=== PATIENT | male | born 1930 | race American Indian/Alaskan Native ===

== ENCOUNTER 2016-08-27 01:58 | Emergency (ER) | payer MEDICARE ==
[2016-08-27 03:30] LABS: Basophils % (Auto) 0.4 % (0.0-1.8); Eosinophils % (Auto) 0.4 % (0.0-4.3); Hematocrit 34.1 % (35.5-45.6); Hemoglobin 11.4 gm/dl (11.8-15.2); Mean Corpuscular HGB Conc 34 % (32-34); Mean Corpuscular Hemoglobin 30 pg (28-32); Mean Corpuscular Volume 91 fl (84-94); Platelet Count 286 K/mm3 (140-440); Red Blood Count 3.76 M/mm3 (3.65-5.03); Red Cell Distribution Width 13.3 % (13.2-15.2); White Blood Count 10.2 K/mm3 (4.5-11.0)
[2016-08-27 03:32] LABS: Alanine Aminotransferase 25 units/L (7-56); Albumin 3.6 g/dL (3.9-5); Alkaline Phosphatase 66 units/L (35-129); Anion Gap 19 mmol/L; Blood Urea Nitrogen 12 mg/dL (9-20); Calcium 8.9 mg/dL (8.4-10.2); Carbon Dioxide 27 mmol/L (22-30); Glucose 141 mg/dL (75-100); Lipase 14 units/L (13-60); Potassium 4.3 mmol/L (3.6-5.0); Sodium 144 mmol/L (137-145); Total Protein 7.2 g/dL (6.3-8.2)
[2016-08-27] MEDS ORDERED: ZOFRAN IV ONE (03:51)
[2016-08-27] MEDS ORDERED: NACL 0.9% 1000 ML 1,000 ML IV ONE (03:51)
--- NOTE | 2016-08-27 04:23 | Emergency Department Report ---
ED Abdominal Pain HPI - General Chief Complaint: Abdominal Pain Stated Complaint: ABD PAIN Time Seen by Provider: 08/27/16 03:35 Source: family, EMS Mode of arrival: Stretcher Limitations: No Limitations - History of Present Illness Initial Comments: This is an 85-year-old gentleman coming from home. They daughter is historian. According to her her father has had increased burping today. He seemed to be doing fine otherwise and at his baseline. After dinner this evening he seemed to be uncomfortable. He did have emesis times one just before ambulance coming. Patient specifically asked to be brought to the hospital due to his abdominal pain. After having emesis 1 and he seems more comfortable according to the daughter. She indicates she is otherwise been doing his baseline activities. He is currently on hospice. He has limited activities. He is bedridden. He wears diaper for bowel and bladder incontinence. He has not had fevers. He is able to tolerate by mouth intake but does require assistance with this. His baseline does include some speech but has some difficulty with this process and difficulty with understanding. She indicates that he is coherent and lucid enough in general to be able to explain when he has discomfort however. ED caveat is taken due to dementia. - Related Data Home Medications Medication Instructions Recorded Confirmed Last Taken Aspirin [Aspirin BABY CHEW TAB] 81 mg PO QDAY 01/28/15 08/22/15 07/09/15 Cetirizine HCl [ZyrTEC] 10 mg PO DAILY 01/28/15 08/22/15 Unknown Metoprolol [Lopressor TAB] 25 mg PO DAILY 01/28/15 08/22/15 Unknown [place]-3 Fatty Acids [Fish Oil] 1,000 mg PO DAILY 01/28/15 08/22/15 07/11/15 Polyethylene Glycol 3350 [Miralax 17 gm PO QDAY 01/28/15 08/22/15 Unknown 3350] Vitamin E Acetate [Vitamin E] 2,000 unit PO DAILY 01/28/15 08/22/15 07/11/15 Ascorbic Acid [Vitamin C] 1,000 mg PO DAILY 07/12/15 08/22/15 Unknown Rober Seed/Ala/Linoleic/Oleic [Sv 1,000 mg PO DAILY 07/12/15 08/22/15 07/11/15 Rober Seed Oil 1,000 mg Sfgl] Cyanocobalamin (Vitamin B-12) 5,000 mcg PO DAILY 07/12/15 08/22/15 Unknown [Vitamin B12] Garlic [Odor Free Garlic] 100 mg PO DAILY 07/12/15 08/22/15 07/11/15 Ginkgo Biloba 40 mg PO DAILY 07/12/15 08/22/15 07/11/15 Lactobacillus Combination No.8 1 each PO DAILY 07/12/15 08/22/15 Unknown [Adult Probiotic] Memantine HCl [Namenda Xr] 21 mg PO DAILY 07/12/15 08/22/15 Unknown Multivit-Min/FA/Lycopen/Lutein 1 each PO DAILY 07/12/15 08/22/15 Unknown [Centrum Silver Tablet] Turmeric Root Extract [Turmeric] 500 mg PO DAILY 07/12/15 08/22/15 07/11/15 Previous Rx's Medication Instructions Recorded Last Taken Type HYDROcodone/APAP 5-325 [[place]uma 1 each PO Q6HR PRN #20 tablet 07/19/15 Unknown Rx 5-325 mg TAB] Apixaban [Eliquis] 5 mg PO BID #30 tablet 08/24/15 Unknown Rx Apixaban [Eliquis] 10 mg PO BID #12 tablet 08/24/15 Unknown Rx Ciprofloxacin [Ciprofloxacin ORAL 500 mg PO Q12H #20 ml 08/24/15 Unknown Rx LIQ] Allergies Allergy/AdvReac Type Severity Reaction Status Date / Time No Known Allergies Allergy Verified 07/11/15 10:51 ED Review of Systems ROS: Stated complaint: ABD PAIN Other details as noted in HPI Comment: per daughter Constitutional: denies: chills, fever Respiratory: cough (since yesterday) Gastrointestinal: abdominal pain, vomiting ED Past Medical Hx - Past Medical History Hx Hypertension: Yes Hx CVA: Yes Hx Heart Attack/AMI: No Hx Congestive Heart Failure: No Hx Diabetes: No Hx Deep Vein Thrombosis: No Hx Pulmonary Embolism: No Hx Liver Disease: No Hx Renal Disease: No Hx Sickle Cell Disease: No Hx Arthritis: No Hx Seizures: No Hx Kidney Stones: No Hx Asthma: No Hx COPD: No Hx Tuberculosis: No Hx Dementia: Yes Hx HIV: No - Surgical History Hx Coronary Stent: No Hx Pacemaker: No Hx Internal Defibrillator: No - Social History Smoking Status: Former Smoker Substance Use Type: None - Medications Home Medications: Home Medications Medication Instructions Recorded Confirmed Last Taken Type Aspirin [Aspirin BABY CHEW TAB] 81 mg PO QDAY 01/28/15 08/22/15 07/09/15 History Cetirizine HCl [ZyrTEC] 10 mg PO DAILY 01/28/15 08/22/15 Unknown History Metoprolol [Lopressor TAB] 25 mg PO DAILY 01/28/15 08/22/15 Unknown History [place]-3 Fatty Acids [Fish Oil] 1,000 mg PO DAILY 01/28/15 08/22/15 07/11/15 History Polyethylene Glycol 3350 [Miralax 17 gm PO QDAY 01/28/15 08/22/15 Unknown History 3350] Vitamin E Acetate [Vitamin E] 2,000 unit PO DAILY 01/28/15 08/22/15 07/11/15 History Ascorbic Acid [Vitamin C] 1,000 mg PO DAILY 07/12/15 08/22/15 Unknown History Rober Seed/Ala/Linoleic/Oleic [Sv 1,000 mg PO DAILY 07/12/15 08/22/15 07/11/15 History Rober Seed Oil 1,000 mg Sfgl] Cyanocobalamin (Vitamin B-12) 5,000 mcg PO DAILY 07/12/15 08/22/15 Unknown History [Vitamin B12] Garlic [Odor Free Garlic] 100 mg PO DAILY 07/12/15 08/22/15 07/11/15 History Ginkgo Biloba 40 mg PO DAILY 07/12/15 08/22/15 07/11/15 History Lactobacillus Combination No.8 1 each PO DAILY 07/12/15 08/22/15 Unknown History [Adult Probiotic] Memantine HCl [Namenda Xr] 21 mg PO DAILY 07/12/15 08/22/15 Unknown History Multivit-Min/FA/Lycopen/Lutein 1 each PO DAILY 07/12/15 08/22/15 Unknown History [Centrum Silver Tablet] Turmeric Root Extract [Turmeric] 500 mg PO DAILY 07/12/15 08/22/15 07/11/15 History HYDROcodone/APAP 5-325 [[place]uma 1 each PO Q6HR PRN #20 tablet 07/19/15 08/22/15 Unknown Rx 5-325 mg TAB] Apixaban [Eliquis] 5 mg PO BID #30 tablet 08/24/15 Unknown Rx Apixaban [Eliquis] 10 mg PO BID #12 tablet 08/24/15 Unknown Rx Ciprofloxacin [Ciprofloxacin ORAL 500 mg PO Q12H #20 ml 08/24/15 Unknown Rx LIQ] ED Physical Exam - General Limitations: No Limitations General appearance: other (sleeping. Is arousable. Frail appearing) - Head Head exam: Present: atraumatic, normocephalic - Eye Eye exam: Present: normal appearance, EOMI. Absent: scleral icterus - ENT ENT exam: Present: mucous membranes dry, other (no oral lesions) - Neck Neck exam: Present: full ROM. Absent: meningismus, lymphadenopathy - Respiratory Respiratory exam: Present: normal lung sounds bilaterally. Absent: wheezes, rales - Cardiovascular Cardiovascular Exam: Present: regular rate, normal rhythm. Absent: bradycardia , systolic murmur, diastolic murmur - GI/Abdominal GI/Abdominal exam: Present: soft, tenderness (mild in the right lower quadrant. Over the area where he had his hernia repair.), normal bowel sounds. Absent: distended, guarding - exam: Present: normal inspection, other (Stage 1 skin breakdown in the perineum.) - Extremities Exam Extremities exam: Present: normal inspection. Absent: tenderness - Back Exam Back exam: Absent: tenderness, CVA tenderness (R), CVA tenderness (L) - Neurological Exam Neurological exam: Present: other (moves arms spontaneously. Is able to minimally move the legs.) - Psychiatric Psychiatric exam: Present: other (calm when awake) - Skin Skin exam: Present: warm, dry, intact, normal color ED Course Vital Signs 08/27/16 05:12 Pulse Rate 93 H Respiratory 25 H Rate Blood Pressure 119/85 [Left] O2 Sat by Pulse 96 Oximetry - Reevaluation(s) Reevaluation #1: 08/27/16 06:06 Labs are nor noted. Normal white count is noted. A Y studies are noted as well. Urinalysis demonstrates no infection but does have amount moderate amount of hematuria. I question whether this is due to quick cath procedure. I do not suspect infectious component with the urine however. X-ray does reveal modest to market amount of colonic stool. There is some stomach distention noted as well. Patient was given a fleets enema here with excellent result. His abdomen seems much softer after enema as well. Despite this is the etiology of his discomforts. I will discharge back to home. He does have an excellent caregiver and his daughter. She is very agreeable with the plan and agrees repeat enema at home if necessary. I do not suspect surgical etiology at this time. The abdominal x-ray does not demonstrate an obstructive pattern as much as just constipated versus obstipated pattern. ED Medical Decision Making - Lab Data Result diagrams: 08/27/16 02:57 08/27/16 02:57 - Radiology Data interpreted by me: Moderate amount of stool in the rectal vault. Colonic dilation is noted. Consistent with old leads. There is moderate amount of food contents noted in the stomach with some distention as well. No transition point. Critical care attestation.: If time is entered above; I have spent that time in minutes in the direct care of this critically ill patient, excluding procedure time. ED Disposition Clinical Impression: Constipation by delayed colonic transit Disposition: DISCHARGED TO HOME OR SELFCARE Is pt being admited?: No Does the pt Need Aspirin: No Condition: Stable Instructions: Constipation (ED) Additional Instructions: Consider another enema at home if Wilfrido continues to demonstrate some evidence of abdominal discomfort at home. Drink plenty of fluids. Consider a stool softener or diet modification if he continues to be constipated. Referrals: PRIMARY CARE, [Primary Care Provider] - 3-5 Days Time of Disposition: 06:04
[2016-08-27] MEDS ORDERED: FLEET PR ONE (04:44)
[2016-08-27 04:45] LABS: Bilirubin,Urine NEG (Negative); Blood,Urine LG (Negative); Ketones,Urine TR mg/dL (Negative); Leukocyte Esterase,Urine NEG (Negative); Mucus,Urine 3+ /HPF; Nitrite,Urine NEG (Negative)
[2016-08-27 05:13] VITALS: BP 119/85
--- NOTE | 2016-08-27 07:19 | XRay Report ---
ABDOMINAL SERIES: History: Abdominal pain. The stomach is markedly distended and filled with debris. Correlate for gastric outlet obstruction. The small bowel loops and colon appear normal caliber. There is moderate fecal retention. Radiotherapy beads are noted in the prostate bed. AP view of the chest demonstrates borderline heart size and mild chronic interstitial changes in both lungs. No infiltrate, pleural effusion or pneumothorax. The esophagus also appears gas filled and dilated. IMPRESSION: Marked distention of the stomach concerning for gastric outlet obstruction. Please correlate with the patient and consider further evaluation with CT.
== END 2016-08-27 09:43 | disposition home or self-care (01) ==
LOC: ED 01:58
DX: K59.00 Constipation, unspecified (principal); Z79.82 Long term (current) use of aspirin; Z86.73 Personal history of transient ischemic attack (TIA), and cerebral infarction without residual deficits; Z87.891 Personal history of nicotine dependence; I10 Essential (primary) hypertension
CPT/HCPCS: 36415; 74022; 80053; 81001; 83690; 85025; 96361; 96374; 99284; J2405; J7030

== ENCOUNTER 2016-11-25 01:07 | Inpatient (IN) | payer MEDICARE ==
[2016-11-25 01:48] LABS: Hematocrit 31.4 % (35.5-45.6); Hemoglobin 10.3 gm/dl (11.8-15.2); Mean Corpuscular HGB Conc 33 % (32-34); Mean Corpuscular Hemoglobin 29 pg (28-32); Mean Corpuscular Volume 89 fl (84-94); Platelet Count 335 K/mm3 (140-440); Red Blood Count 3.52 M/mm3 (3.65-5.03); Red Cell Distribution Width 14.8 % (13.2-15.2); White Blood Count 16.4 K/mm3 (4.5-11.0)
[2016-11-25 02:11] LABS: Alanine Aminotransferase 7 units/L (7-56); Albumin 2.8 g/dL (3.9-5); Albumin/Globulin Ratio 0.7 %; Alkaline Phosphatase 57 units/L (35-129); Anion Gap 21 mmol/L; BUN/Creatinine Ratio 25.71; Blood Urea Nitrogen 18 mg/dL (9-20); Calcium 8.9 mg/dL (8.4-10.2); Carbon Dioxide 23 mmol/L (22-30); Chloride 101.2 mmol/L (98-107); Glucose 137 mg/dL (75-100); Potassium 4.2 mmol/L (3.6-5.0); Sodium 141 mmol/L (137-145); Total Protein 7.1 g/dL (6.3-8.2)
--- NOTE | 2016-11-25 03:17 | Emergency Department Report ---
HPI - General Chief Complaint: Dyspnea/Respdistress Time Seen by Provider: 11/25/16 01:10 - HPI HPI: This is a 86-year-old Af[place] male presents the emergency department by EMS from home with shortness of breath and some signs of respiratory distress. The patient has a history of dementia and CVA. He has home health care hospice. The patient himself is a poor historian currently. Family eventually came bedside and says he normally is able to converse well but today he has not been talking much. came home and found the patient appeared to be breathing fast and appears short of breath so EMS was called. He was found to have a pulse ox of about 80% on room air and had audible crackles. He improved when he was placed on CPAP in route. ED Past Medical Hx - Past Medical History Previous Medical History?: Yes Hx Hypertension: Yes Hx CVA: Yes Hx Heart Attack/AMI: No Hx Congestive Heart Failure: No Hx Diabetes: No Hx Deep Vein Thrombosis: No Hx Pulmonary Embolism: No Hx Liver Disease: No Hx Renal Disease: No Hx Sickle Cell Disease: No Hx Arthritis: No Hx Seizures: No Hx Kidney Stones: No Hx Asthma: No Hx COPD: No Hx Tuberculosis: No Hx Dementia: Yes Hx HIV: No Additional medical history: home hospice - Surgical History Past Surgical History?: Yes Hx Coronary Stent: No Hx Pacemaker: No Hx Internal Defibrillator: No - Social History Smoking Status: Former Smoker Substance Use Type: Alcohol - Medications Home Medications: Home Medications Medication Instructions Recorded Confirmed Last Taken Type Garlic [Odor Free Garlic] 100 mg PO DAILY 07/12/15 11/25/16 07/11/15 History Aspirin EC [Aspirin Enteric Coated 81 mg PO QDAY 11/25/16 11/25/16 Unknown History TAB] Clarinda Oil (Nf) 60 ml PO QDAY 11/25/16 11/25/16 Unknown History Docusate Sodium [Colace ORAL LIQ] 100 mg PO DAILY 11/25/16 11/25/16 Unknown History Ranitidine HCl [Zantac 15mg/ml 150 mg PO BID 11/25/16 11/25/16 Unknown History Oral Liq] ED Review of Systems ROS: Stated complaint: ANJEL Other details as noted in HPI Comment: Unobtainable due to pts medical conditions Physical Exam - Physical Exam Vital Signs: Vital Signs 11/25/16 11/25/16 11/25/16 01:09 01:16 01:18 Temperature 97.8 F Pulse Rate 107 H Respiratory 37 H 37 H 36 H Rate Blood Pressure 127/77 O2 Sat by Pulse 94 95 Oximetry 11/25/16 11/25/16 11/25/16 01:29 01:31 01:45 Temperature Pulse Rate 83 103 H 101 H Respiratory 27 H 30 H 33 H Rate Blood Pressure 127/77 110/82 O2 Sat by Pulse 96 99 99 Oximetry 11/25/16 11/25/16 11/25/16 02:00 02:15 02:30 Temperature Pulse Rate 101 H 99 H 100 H Respiratory 29 H 29 H 29 H Rate Blood Pressure 114/83 111/81 112/77 O2 Sat by Pulse 100 99 99 Oximetry 11/25/16 02:32 Temperature Pulse Rate 102 H Respiratory Rate Blood Pressure O2 Sat by Pulse Oximetry Physical Exam: GENERAL: Patient is elderly and ill-appearing. HEENT: Normocephalic. Atraumatic. Extraocular motions are intact. Patient has moist mucous membranes. Pupils equal reactive to light bilaterally. NECK: Supple. Trachea is midline. CHEST/LUNGS: Severely coarse breath sounds heard throughout the chest and even heard without auscultation coming out of his mouth. There is tachypnea and supraclavicular accessory muscle use. There is respiratory distress noted. HEART/CARDIOVASCULAR: Regular. There is mild tachycardia. There is no gallop rub or murmur. ABDOMEN: Abdomen is soft, nontender. Patient has normal bowel sounds. There is no abdominal distention. SKIN: Skin is warm and dry. NEURO: The patient is awake. Patient currently nonverbal. The patient is cooperative. The patient has no focal neurologic deficits. MUSCULOSKELETAL: There is no tenderness or deformity. Radial pulses +2 over 4 bilaterally. Cap refill less than 2 seconds. There is no evidence of acute injury. ED Course Vital Signs 11/25/16 11/25/16 11/25/16 01:09 01:16 01:18 Temperature 97.8 F Pulse Rate 107 H Respiratory 37 H 37 H 36 H Rate Blood Pressure 127/77 O2 Sat by Pulse 94 95 Oximetry 11/25/16 11/25/16 11/25/16 01:29 01:31 01:45 Temperature Pulse Rate 83 103 H 101 H Respiratory 27 H 30 H 33 H Rate Blood Pressure 127/77 110/82 O2 Sat by Pulse 96 99 99 Oximetry 11/25/16 11/25/16 11/25/16 02:00 02:15 02:30 Temperature Pulse Rate 101 H 99 H 100 H Respiratory 29 H 29 H 29 H Rate Blood Pressure 114/83 111/81 112/77 O2 Sat by Pulse 100 99 99 Oximetry 11/25/16 02:32 Temperature Pulse Rate 102 H Respiratory Rate Blood Pressure O2 Sat by Pulse Oximetry - ABG Interpretation Ph: 7.54 PCO2: 30 PO2: 60 Bicarbonate: 26 ED Medical Decision Making - Lab Data Result diagrams: 11/25/16 01:12 11/25/16 01:12 - EKG Data -: EKG Interpreted by Me EKG shows normal: sinus rhythm (with fusion complexes), axis, intervals, QRS complexes, ST-T waves Rate: tachycardia (101 bpm) - EKG Data When compared to previous EKG there are: previous EKG unavailable Interpretation: other (sinus rhythm with fusion complexes, normal axis, mild tachycardia at 101 bpm) - Radiology Data Radiology results: report reviewed, image reviewed interpreted by me: Chest x-ray shows hyperinflation of the lungs, flattening of the diaphragms and some signs of interstitial lung disease and/or fibrosis. CT angiography of the chest shows no evidence of pulmonary arterial emboli. COPD with fibrosis. Bilateral lower lung atelectasis with mild effusions. Significant ascites in the upper abdomen. - Medical Decision Making 86-year-old male presents with some respiratory distress with audible coarse breath sounds both through the lung raymundo with auscultation as well as coming out of his mouth. There is tachypnea and accessory muscle use. Patient was switched to a BiPAP machine. ABG shows some hypoxia and shows some respiratory alkalosis. Labs show elevated troponins but it has started to trend down. D- dimer is extremely elevated and therefore a CT angiography of the chest was done that does not show any pneumonia and appears consistent with COPD with fibrosis as well as some upper abdominal ascites. The patient is a DO NOT RESUSCITATE as the daughter does not want any type of mechanical ventilation or life support but is in agreement for any type of treatment that we will keep him from losing his pulse or requiring mechanical assistance. Once the patient was placed on the BiPAP he improved. It is helped with the coarse breath sounds and while on the BiPAP he does not have any hypoxia. However he does appear to have desaturation when he is taken off of it. Due to the elevated troponin level without renal insufficiency, the patient was given aspirin per rectum. I will hold off on any heparin at this time secondary to the patient's advanced age, dementia and concern for falls. However he will be admitted to the hospital for further evaluation and possible cardio consultation has been accepted for admission by the hospitalist, Dr. Cisse. Critical Care Time: Yes Critical care time in (mins) excluding proc time.: 31 Critical care attestation.: If time is entered above; I have spent that time in minutes in the direct care of this critically ill patient, excluding procedure time. Critical care time was spent on this patient and doing his initial evaluation, multiple re- evaluations, ordering and interpretation of labs, ordering and interpretation of imaging, discussion with the daughter at bedside multiple times, discussion with the hospitalist, disposition planning. Critical Care Time: 31 mins ED Disposition Clinical Impression: Elevated troponin, Respiratory distress, Hypoxemia Dementia Qualifiers: Dementia type: unspecified type Dementia behavioral disturbance: without behavioral disturbance Qualified Code(s): F03.90 - Unspecified dementia without behavioral disturbance Disposition: OP ADMIT IP TO THIS HOSP Is pt being admited?: Yes Condition: Fair Referrals: PRIMARY CARE, [Primary Care Provider] - 3-5 Days Time of Disposition: 06:17
[2016-11-25 03:35] LABS: Basophils % (Manual) 0 % (0.0-1.8); Blastocytes % (Manual) 0 %; Diff Status Complete; Eosinophils % (Manual) 0 % (0.0-4.3); Platelet Estimate Consistent w Auto; RBC Morphology Normal
[2016-11-25] MEDS ORDERED: NACL ONE (04:04)
--- NOTE | 2016-11-25 05:50 | Cat Scan Report ---
FINAL REPORT PROCEDURE: CT ANGIO CHEST TECHNIQUE: Computerized tomographic angiography of the chest was performed after the IV injection of iodinated nonionic contrast including image processing. The image data was postprocessed using 2-dimensional multiplanar reformatted (MPR) and 3-dimensional (MIP and/or volume rendered) techniques. HISTORY: SOB, hypoxia, elevated dimer COMPARISON: 08/23/2015 FINDINGS: Heart and pericardium: Normal. Thoracic aorta: Moderate atherosclerosis of the aorta. No aneurysm or dissection.. Pulmonary vasculature: No pulmonary arterial emboli. Lymph nodes: No enlarged thoracic lymph nodes. Lungs: Bilateral lower lung atelectasis with mild effusions. Mild COPD with fibrosis. No pneumothorax. The central airway is patent.. Pleural space: No effusion, thickening, or pneumothorax. Musculoskeletal structures: Moderate degenerative changes of the thoracic spine. No acute osseous abnormality. Upper abdominal structures: There significant ascites in the upper abdomen.. IMPRESSION: There is no evidence of pulmonary arterial emboli. COPD with fibrosis. Bilateral lower lung atelectasis with mild effusions. Significant ascites in the upper abdomen.
[2016-11-25] MEDS ORDERED: ASPIRIN PR ONE (05:52)
[2016-11-25] MEDS ORDERED: ASPIRIN PO ONE (07:34)
[2016-11-25] MEDS ORDERED: DULCOLAX PR PRN (07:36)
--- NOTE | 2016-11-25 07:39 | Admit Criteria Form ---
Admission Criteria Documentation: GENERAL ADMISSION CRITERIA (Place 'X' for any and all applicable criteria): Admission is indicated for ANY ONE of the following: [ ]I. Hemodynamic instability as indicated by ANY ONE of the following(1)(2) (3)(4)(5): [ ]a) Vital sign abnormality not readily corrected by appropriate treatment within 12 to 24 hours indicated by ANY ONE of the following: [ ]i) Hypotension [ ]ii) Symptomatic Tachycardia unresponsive to treatment (eg , analgesia, fluids, sedation as indicated) [ ]iii) Orthostatic vital sign changes unresponsive to treatment (eg, fluids) [ ]b) Vital sign abnormality that is severe indicated by ANY ONE of the following: [ ]i) Inadequate perfusion indicated by ANY ONE of the following: [ ]1) Lactic acidosis (greater than 2 mmol/L) [ ]2) New abnormal capillary refill (greater than 3 seconds) [ ]3) Other metabolic acidosis (arterial pH less than 7.35) not otherwise explained [ ]4) Reduced urine output [ ]5) Altered mental status [ ]6) Myocardial Ischemia [ ]v) Mean arterial pressure[A] less than 60 mm Hg [ ]vi) Mean arterial pressure[A] less than 70 mm Hg after 30 minutes of appropriate treatment (eg, fluid resuscitation) [ ]vii) IV inotropic or vasopressor medication required to maintain adequate blood pressure or perfusion [ ]viii) Sustained heart rate greater than 120 beats per minute in adult or child 6 years or older[B]] [ ]II. Hypertension requiring inpatient treatment as indicated by ANY ONE of the following(6)(7)(8): [ ]a) SBP greater than 220 mm Hg or DBP greater than 120 mm Hg despite treatment [ ]b) SBP greater than 140 mm Hg or DBP greater than 100 mm Hg with evidence of acute end organ damage as indicated by ANY ONE of the following: [ ]i) Encephalopathy [ ]ii) Acute renal failure as indicated by new onset of ANY ONE of the following(9)(10)(11)(12)(13): [ ]1) A 3-fold rise in serum creatinine from baseline [ ]2) Serum creatinine greater than 4 mg/dL ( 354 micromoles/L) with acute rise greater than 0.5 mg/dL (44.2 micromoles/L) [ ]3) Reduction of more than 75% in estimated glomerular filtration rate from baseline [ ]4) Estimated glomerular filtration rate less than 35 mL/min/1.73m2 (0.59 mL/sec/1.73m2) in child up to 18 years of age [ ]5) Cessation of urine output indicated by ALL of the following: [ ]A. Adequate volume status [ ]B. Inadequate urine output as indicated by ANY ONE of the following: [ ]a. Urine output less than 0.3 mL/kg/hr for 24 hours [ ]b. Anuria (urine output less than 0.1 mL/kg/hr) for 12 hours [ ]iii) Aortic dissection [ ]iv) Myocardial ischemia [ ]v) Left ventricular heart failure [ ]vi) Retinal hemorrhage [ ]vii) Other significant finding [ ]c) Hypertension in child requiring inpatient treatment as indicated by ALL of the following(14)(15)(16): [ ]i) Outpatient treatment not effective, not available, or not appropriate [ ]ii) SBP or DBP greater than 95th percentile for age [ ]iii) Evidence of acute end organ damage as indicated by ANY ONE of the following: [ ]1) Altered mental status [ ]2) Acute renal failure as indicated by new onset of ANY ONE of the following(9)(10)(11)(12)(13): [ ]A. A 3-fold rise in serum creatinine from baseline [ ]B. Serum creatinine greater than 4 mg/dL (354 micromoles/L) with acute rise greater than 0.5 mg/dL (44.2 micromoles/L) [ ]C. Reduction of more than 75% in estimated glomerular filtration rate from baseline [ ]D. Estimated glomerular filtration rate less than 35 mL/min/1.73m2 (0.59 mL/sec/1.73m2)in child up to 18 years of age [ ]E. Cessation of urine output indicated by ALL of the following: [ ]a. Adequate volume status [ ]b. Inadequate urine output as indicated by ANY ONE of the following: [ ]1) Urine output less than 0.3 mL/kg/hr for 24 hours [ ]2) Anuria (urine output less than 0.1 mL/kg/hr) for 12 hours [ ]3) Severe headache [ ]4) Visual disturbance [ ]5) Retinal hemorrhage [ ]6) Other significant finding [ ]III. Acute cardiac or peripheral ischemia as indicated by ANY ONE of the following: [ ]a) Acute coronary syndrome(17)(18) [ ]b) Acute peripheral ischemia (eg, pulseless, cool, mottled, or cyanotic extremity)(19) [ ]IV. Cardiac arrhythmias or findings of immediate concern indicated by ANY ONE of the following(20)(21): [ ]a) Heart rhythms that are inherently dangerous or unstable indicated by ANY ONE of the following(22)(23)(24): [ ]i) Resuscitated ventricular fibrillation or cardiac arrest [ ]ii) Ventricular escape rhythm [ ]iii) Sustained ventricular tachycardia (30 seconds or more of ventricular rhythm at greater than 100 beats per minute) [ ]iv) Nonsustained ventricular tachycardia and ANY ONE of the following: [ ]1) Suspected cardiac ischemia as cause or consequence of ventricular tachycardia [ ]2) In setting of acute myocarditis [ ]b) Unstable cardiac conduction defects indicated by ANY ONE of the following(24)(25)(26): [ ]i) Type II second-degree atrioventricular block [ ]ii) Third-degree atrioventricular block [ ]iii) New-onset left bundle branch block with suspected myocardial ischemia [ ]c) Any heart rhythm and ANY ONE of the following(22)(23)(27)(28)( 29): [ ] i) Continuous long-term ECG monitoring needed (eg, initiation of drug requiring monitoring for more than 24 hours) [ ] ii) Patient has automatic implanted cardioverter defibrillator that is repeatedly firing, malfunctioning, or in need of immediate adjustment of settings beyond the scope of ambulatory or observation care. [ ]d) Heart rhythms of concern due to ANY ONE of the following: [ ]i) Hypotension [ ]ii) Respiratory distress [ ]iii) Association with other significant symptoms (eg, bradycardia with syncope or ongoing dizziness, supraventricular tachycardia with chest pain) (27)(28) (30) [ ] V. Severe heart failure as indicated by ANY ONE of the following ( 31)(32): [ ]a) Respiratory distress [ ]b) Hypotension [ ]c) Anasarca (refractory to outpatient therapy) [ ]d) Cardiac arrhythmias of immediate concern [ ]e) Myocardial ischemia [X]. Respiratory abnormalities, including ANY ONE of the following(33)(34) (35)(36): [X]a) Respiratory rate greater than 30 breaths per minute unresponsive to treatment [A] [X]b) New saturation of arterial oxygen less than 90% [ ]c) New partial pressure of carbon dioxide greater than 44 mm Hg ( 5.9 kPa) [X]d) Supplemental oxygen or respiratory treatments needed that are new or not performable at other levels of care [ ]e) New-onset cyanosis [X]f) Inability to protect airway [ ]g) Chronic lung disease with severe deterioration (not responsive to emergency and observation care treatment as appropriate) as indicated by ANY ONE of the following(34)(36 ): [ ]i) SaO2 5% below baseline in patient with chronic hypoxemia [ ]ii) New requirement for supplemental oxygen to keep SaO2 at baseline or acceptable level [ ]iii) Required supplemental oxygen performable only in acute inpatient setting [ ]iv) Severe airflow or ventilation abnormalities [ ]v) Previously mobile patient unable to walk between rooms [ ]vi Inability to eat or sleep due to dyspnea [ ]vii) Rapid rate of exacerbation onset [ ]viii) Altered mental status ]VII. Severe airflow or ventilation abnormalities (not responsive to emergency and observation care treatment as appropriate) as indicated by ANY ONE of the following(33)(34)(35)(37): [ ]a) PCO2 greater than 42 mm Hg (5.6 kPa) and pH less than 7.35 (new ) [ ]b) Documented PCO2 increased more than 5 mm Hg (0.7 kPa) from disease baseline [ ]c) Airflow measurements [B] less than 60% of previous best or predicted (eg, peak expiratory flow rate less than 300 L/minute) despite intensive emergent treatment [C] [ ]d) Required respiratory treatments that are performable only in acute inpatient setting [ ]VIII. Impending or actual respiratory arrest ( Also use Respiratory Failure GRG for severe respiratory disease and long-term mechanical ventilation patients) [ ]IX. Neurologic abnormalities, including ANY ONE of the following: [ ]a) New findings that suggest ANY ONE of the following: [ ]i) ULTRASONOGRAPHER infection(38) [ ]ii) Cerebral bleeding, ischemia, or vasospasm(39)(40) [ ]iii) Increased intracranial pressure, hydrocephalus, or cerebral edema(41)(42)(43) [ ]iv) Spinal cord injury(44) [ ]b) Uncontrolled seizures(45) [ ]c) New-onset coma (eg, Norman coma scale score less than 9) or unexplained abnormal mental status (eg, Norman coma scale score less than 14) [D](41)(46)(47) [ ]X. New-onset severe neurologic findings requiring inpatient care; examples include(42)(48)(49): [ ]a) Papilledema [ ]b) Cerebral edema [ ]c) Mass effect on CT scan [ ]XI. Suspected acute intra-abdominal process with peritoneal signs, abdominal mass, or similar findings (50)(51)(52) [ ]XII. Severe physiologic disorder remaining after emergency or observation level care (as appropriate) as indicated by ANY ONE of the following (53): [ ]a) Significant dehydration [ ]b) Diabetic ketoacidosis [ ]c) Hyperglycemic hyperosmolar state (eg, osmolality greater than 320 mOsm/kg (mmol/kg) [ ]d) Hypoglycemia [ ]e) Other (new) acid-base disorder with pH less than 7.35 or greater than 7.5(54) [ ]f) Thyroid storm (55) [ ]g) Myxedema coma (55) [ ]XIII. Abdominal abnormalities with ANY ONE of the following(56)(57): [ ]a) Absent bowel sounds with complete ileus [ ]b) Signs of intestinal obstruction or peritonitis [E] [ ]c) Nausea and vomiting that cannot be controlled with outpatient or observation care [ ]XIV. Acute renal failure as indicated by new onset of ANY ONE of the following(9)(10)(11)(12)(13): [ ]a) A 3-fold rise in serum creatinine from baseline [ ]b) Serum creatinine greater than 4 mg/dL (354 micromoles/L) with acute rise greater than 0.5 mg/dL (44.2 micromoles/L) [ ]c) Reduction of more than 75% in estimated glomerular filtration rate from baseline [ ]d) Estimated glomerular filtration rate less than 35 mL/min/ 1.73m2 (0.59 mL/sec/1.73m2) in child up to 18 years of age [ ]e) Cessation of urine output indicated by ALL of the following: [ ]i) Adequate volume status [ ]ii) Inadequate urine output as indicated by ANY ONE of the following: [ ]1) Urine output less than 0.3 mL/kg/hr for 24 hours [ ]2) Anuria (urine output less than 0.1 mL/kg/hr) for 12 hours [ ]XV. Significant uremic complications as indicated by ANY ONE of the following(58)(59)(60): [ ]a) Outpatient therapy is ineffective or not feasible for ANY ONE of the following: [ ]i) Severe heart failure [ ]ii) Severehypertension [ ]iii) Pleural effusion [ ]iv) Pericarditis or pericardial effusion [ ]b) Cardiac arrhythmias of immediate concern [ ]c) Intractable nausea or vomiting [ ]d) Recurrent seizures [ ]e) Encephalopathy [ ]f) Bleeding abnormalities (eg, platelet dysfunction) with active (eg, gastrointestinal) bleeding [ ]g) Dialysis indicated before long-term access or ambulatory arrangements can be made [ ]h) Significant metabolic or electrolyte abnormalities (eg, severe acidosis or hyperkalemia) [ ]XVI. High fever or other high-risk infection situation as indicated by ANY ONE of the following(61)(62)(63)(64): [ ]a) Outpatient and observation care antimicrobial treatment unavailable, not effective, or not appropriate [ ]b) Documented bacteremia [ ]c) Temperature greater than 40.5 degrees C (104.9 degrees F) ( oral) [ ]d) Temperature greater than 39.5 degrees C (103.1 degrees F) ( oral) or less than 36 degrees C (96.8 degrees F) (rectal) that does not respond to e treatment and observation care [ ] XVII. Temperature less than 95 degrees F (35 degrees C)(rectal)(65) [ ] XVIII. Severe nutritional abnormalities as indicated by ALL of the following (66)(67): [ ]a) Inability to tolerate or establish sufficient oral or other enteral nutrition in outpatient setting [ ]b) Parenteral nutrition regimen need that must be implemented on inpatient basis [ ] XIX. Severe electrolyte abnormalities indicated by ALL of the following(68) (69)(70): [ ]a) Electrolytes and associated findings are not as expected for patient baseline or acceptable treatment effects. [ ]b) Severe abnormalities indicated by ANY ONE of the following: [ ]i) Sodium less than 130 mEq/L (mmol/L) (new) [ ]ii)Sodium less than 135 mEq/L (mmol/L) with ANY ONE of the following: [ ]1) Uncorrectable (to near normal or chronic baseline) after trial of outpatient and emergency treatment [ ]2) Altered mental status [ ]3) Seizures [ ]4) Severe medical etiology requiring inpatient management (eg, heart failure, hypovolemia) [ ]iii) Sodium greater than 155 mEq/L (mmol/L) [ ]iv) Sodium greater than 150 mEq/L (mmol/L) with ANY ONE of the following: [ ]1) Uncorrectable (to near normal or chronic baseline) with outpatient and emergency treatment [ ]2) Altered mental status [ ]3) Seizures [ ]4) Severe medical etiology (eg, hypovolemia, diabetes insipidus) [ ]v) Potassium less than 2.5 mEq/L (mmol/L) despite outpatient and emergency treatment [ ]vi) Potassium less than 3 mEq/L (mmol/L) with ANY ONE of the following: [ ]1) Weakness [ ]2) Cardiac abnormality (eg, arrhythmia, conduction disturbance) [ ]3) Cardiac ischemia [ ]4) Ileus [ ]5) Ongoing medical cause requiring inpatient management (eg, acute renal wasting or SIADH) [ ]6) Other severe symptoms [ ]vii) Potassium greater than 6.5 mEq/L (mmol/L) [ ]viii) Potassium greater than 5 mEq/L (mmol/L) with ANY ONE of the following: [ ]1) Uncorrectable (to near normal or chronic baseline) with outpatient and emergency treatment [ ]2) Severe ECG findings [F] [ ]3) Acute worsening of renal failure (creatinine greater than 2.5 mg/dL (221 micromoles/L) or significant elevation for age and size) [ ]4) Severe weakness [ ]5) Severe medical etiology (eg, hemolysis, infection, drug overdose) [ ]ix) Calcium less than 7 mg/dL (1.75 mmol/L) despite outpatient and emergency treatment (72) [ ]x) Calcium less than 8 mg/dL (2 mmol/L) with significant symptoms or findings; examples include(72): [ ]1) Altered mental status [ ]2) Muscle spasms [ ]3) Seizures [ ]4) Breathing difficulty [ ]5) Cardiac abnormality (eg, arrhythmia or conduction disturbance) [ ]xi) Calcium greater than 14 mg/dL (3.5 mmol/L)(72) [ ]xii) Calcium greater than 12 mg/dL (3 mmol/L) with ANY ONE of the following(72): [ ]1) Uncorrectable (to near normal or chronic baseline) with outpatient and emergency treatment [ ]2) Significant dehydration or hypovolemia as indicated by ALL of the following(70)(73)(74): [ ]A. Not resolved with initial treatments [ ]B. Clinically significant dehydration as indicated by ANY ONE of the following: [ ]a. Vomiting refractory to outpatient treatment (ie, precluding oral rehydration) [ ]b. Inability to drink [ ]c. Hypernatremia or other electrolyte abnormality unable to be corrected with outpatient and emergency treatment [ ]d. Failure to remain hydrated with outpatient therapy [ ]e. Reduced urine output [ ]f. Hypotension [ ]g. Serious cause for dehydration requiring acute hospitalization (eg, bowel obstruction, increased intracranial pressure, infectious cause) [ ]h. Child with ANY ONE of the following(75): [ ]1) Severe abdominal tenderness [ ]2) Adequate care not available at home [ ]3) Severe dehydration ( greater than 9% loss of body weight) [ ]4) Significant symptoms or findings; examples include: [ ]A. Altered mental status [ ]B. Cardiac abnormality (eg, arrhythmia, conduction disturbance) [ ]C. Malignant etiology requiring inpatient treatment [ ]xiii) Phosphorus less than 1 mg/dL (0.32 mmol/L) [ ]xiv) Phosphorus less than 1.5 mg/dL (0.48 mmol/L) with ANY ONE of the following: [ ]1) Patient unresponsive to outpatient and emergency treatment [ ]2) Significant symptoms or findings; examples include: [ ]A. Weakness [ ]B. Altered mental status [ ]C. Breathing difficulty [ ]D. Seizures [ ]E. Rhabdomyolysis [ ]xv) Phosphorus greater than 10 mg/dL (3.2 mmol/L) [ ]xvi) Phosphorus greater than 4.5 mg/dL (1.45 mmol/L) (new) with ANY ONE of the following: [ ]1) Severe medical etiology (eg, crush injury, acute renal failure) [ ]2) Associated hypocalcemia with significant findings; examples include: [ ]A. Neurologic symptoms [ ]B. Altered mental status [ ]C. Muscle spasms [ ]D. Seizures [ ]E. Breathing difficulty [ ]F. Cardiac abnormality (eg, arrhythmia, conduction disturbance) [ ]xvii) Magnesium less than 1 mg/dL (0.41 mmol/L) [ ]xviii) Magnesium less than 1.5 mg/dL (0.62 mmol/L) with ANY ONE of the following: [ ]1) Patient unresponsive to outpatient and emergency treatment [ ]2) Associated hypocalcemia with significant findings; examples include: [ ]A. Altered mental status [ ]B. Muscle spasms [ ]C. Seizures [ ]D. Breathing difficulty [ ]E. Cardiac abnormality (eg, arrhythmia , conduction disturbance) [ ]3) Associated hypokalemia (potassium less than 3 mEq/L (mmol/L)) with risk of arrhythmia [ ]xix) Magnesium greater than 4 mEq/L (2 mmol/L) [ ]xx) Magnesium greater than 2.5 mEq/L (1.25 mmol/L) with significant symptoms or findings; examples include: [ ]1) Weakness [ ]2) Altered mental status [ ]3) Cardiac abnormality (eg, arrhythmia, conduction disturbance) [ ]4) Breathing difficulty [ ]5) Severe medical etiology (eg, renal failure, hypovolemia) [ ]xxi) Uric acid greater than 20 mg/dL (1190 micromoles/L)(76) [ ]xxii) Uric acid greater than 8 mg/dL (476 micromoles/L) with significant symptoms or findings of tumor lysis syndrome; examples include(76): [ ]1) Creatinine greater than 1.5 times upper limit of normal [ ]2) Cardiac abnormality (eg, arrhythmia, conduction disturbance) [ ]3) Seizure [ ]XX. Acute blood loss causing significant abnormality as indicated by ANY ONE of the following(77)(78): [ ]a) Hemoglobin less than 10 g/dL (100 g/L) (not baseline) [ ]b) Hematocrit less than 30% (0.30) (not baseline) [ ]c) Repeat hematocrit decreased more than 2% (0.02) [ ]d) Uncontrolled bleeding [ ]XXI. Severe anemia indicated by ANY ONE of the following(78)(79): [ ]a) Altered mental status [ ]b) Chest pain [ ]c) Exertional dyspnea [ ]d) Syncope [ ]e) Other findings suggesting inadequate perfusion [ ]f) Treatment with transfusion or volume replacement is ineffective at resolving ANY ONE of the following [G]: [ ]i) Tachycardia for age [ ]ii) Orthostatic vital sign changes as indicated by ANY ONE of the following(80): [ ]1) Fall in SBP of 20 mm Hg or more 1 to 3 minutes after patient sits or stands from recumbent position [ ]2) Fall in DBP of 10 mm Hg or more 1 to 3 minutes after patient sits or stands from recumbent position [ ]XXII. High-risk low platelet count as indicated by ANY ONE of the following( 81)(82): [ ]a) Severe or life-threatening bleeding (eg, intracranial, major gastrointestinal, or extensive mucosal bleeding), with any reduced platelet count [ ]b) Platelet count less than 20,000/mm3 (20 x109/L) with any active bleeding [ ]c) Platelet count less than 10,000/mm3 (10 x109/L) with minor purpura or petechiae [ ]d) Platelet count less than 5000/mm3 (5 x109/L) [ ]e) Low platelet count with hemolytic anemia [ ]XXIII. Disseminated intravascular coagulation(77)(83) [ ]XXIV. Severe adverse drug or systemic toxin reaction requiring inpatient treatment; examples include(84)(85): [ ]a) Serotonin syndrome(86) [ ]b) Neuroleptic malignant syndrome(86) [ ]c) Cholinergic syndrome with severe symptoms (eg, bronchorrhea, weakness, mental status changes, seizures) [ ]d) Sympathetic syndrome with severe symptoms (eg, seizures, mental status changes, cardiac dysrhythmias) [ ]e) Anticholinergic syndrome [ ]XXV. Severe pain requiring acute inpatient management as indicated by ALL of the following (87)(88)(89): [ ]a) Continuous or frequent (eg, every 2 to 4 hours) parenteral analgesics required [H] [ ]b) Rapid improvement expected from treatment or acute intervention (eg, surgery, anesthesia procedure) [ ]XXVI.Severe behavioral health issues judged unmanageable at a lower level of care (eg, residential) in a patient who is ANY ONE of the following(91) [ ]a) Acutely suicidal [ ]b) A danger to self (eg, self-mutilating or suicidal behavior) [ ]c) A danger to others (eg, assaultive or homicidal behavior) [ ]d) Incapacitated because of grave disability (eg, inability to provide for self at lower level of care) (92) [ ]XXVII. Inpatient monitoring needed; examples include(1)(3)(87)(93)(94)(95)(96 ): [ ]a) Vital signs, neurologic signs, or vascular checks more frequently than every 4 hours [ ]b) Cardiac or respiratory monitoring beyond the scope (eg, over 24 hours) of observation care [ ]c) Pulmonary artery catheter monitoring [ ]d) Suspected compartment syndrome(97) (98) [ ]e) Cerebral bleeding, hydrocephalus, or vasospasm monitoring [ ]f) Increased intracranial pressure or cerebral edema monitoring [ ]g) monitoring [ ]XXVIII. Treatment requiring inpatient care; examples include: [ ]a) IV fluid to replace significant ongoing losses (greater than 3 L/m2 per day)(53) [ ]b) High concentration oxygen (greater than 40%)(33)(99)(100) [ ]c) Frequent respiratory therapy (more frequently than every 4 hours) to maintain airflow rates greater than 60% of baseline(33)(99)(100) [ ]d) Epidural analgesia(87) [ ]e) IV anticoagulation, vasoactive, or antiarrhythmic medication(19 )(23) [ ]f) Acute thrombolytics (generally require 24 hours of observation )(101)(102) [ ]XXIX. Emergency procedures needed; examples include: [ ]a) Emergency inpatient surgery [ ]b) Temporary pacemaker placement(103) [ ]c) Chest tube placement with active evacuation (eg, suction, drainage)(104) [ ]d) Emergent cardioversion(105) [ ]e) Emergent cardiac or vascular procedures (eg, cardiac catheterization, angioplasty) (17)(18) [ ]f) Emergent dialysis access placement and institution(10)(106) [ ]g) Emergent pericardiocentesis(107) [ ]h) Emergent plasmapheresis or leukapheresis(83) [ ]i) Emergent tracheostomy The original [employer] content created by [employer] has been revised. The portions of the content which have been revised are identified through the use of italic text or in bold, and [employer] has neither reviewed nor approved the modified material. All other unmodified content is copyright [employer]. Please see references footnoted in the original [employer] edition 2016 Admission Criteria Met: Yes
--- NOTE | 2016-11-25 07:47 | History and Physical Report ---
<SHAHID HERNÁNDEZ - Last Filed: 11/25/16 12:17> History of Present Illness Date of examination: 11/25/17 Date of admission: 11/25/2016 Chief complaint: Difficulty of breathing History of present illness: Patient is a 86 years old male with past medical history CVA, dementia and COPD with fibrosis who presents to the emergency department by EMS from home with difficulty breathing and signs of respiratory distress. Patient alert and oriented to person, poor historian therefore, unable to obtain present illness history. Patient has home health care hospice. The patient was getting cold and found the patient appears to be breathing fast and having difficulty breathing and call 911 and they brought him emergency department. Patient upon arrival was found to have low oxygen saturation on the 80's % on room air. History obtained from ER physician and charts. Past History Past Medical History: COPD (with fibrosis and dementia), stroke Past Surgical History: No surgical history Social history: , lives with family, AND/DNR-allow natural Family history: CAD, stroke Medications and Allergies Allergies Allergy/AdvReac Type Severity Reaction Status Date / Time No Known Allergies Allergy Verified 11/25/16 01:09 Home Medications Medication Instructions Recorded Confirmed Last Taken Type Garlic [Odor Free Garlic] 100 mg PO DAILY 07/12/15 11/25/16 07/11/15 History Aspirin EC [Aspirin Enteric Coated 81 mg PO QDAY 11/25/16 11/25/16 Unknown History TAB] [place] Oil (Nf) 60 ml PO QDAY 11/25/16 11/25/16 Unknown History Docusate Sodium [Colace ORAL LIQ] 100 mg PO DAILY 11/25/16 11/25/16 Unknown History Ranitidine HCl [Zantac 15mg/ml 150 mg PO BID 11/25/16 11/25/16 Unknown History Oral Liq] Active Meds: Active Medications Albuterol/Ipratropium (Duoneb *Not For Prn Use*) 1 ampul IH TIDRT [facility] Aspirin (Halfprin Ec) 81 mg PO QDAY [facility] Docusate Sodium (Colace) 100 mg PO DAILY [facility] Famotidine (Pepcid) 20 mg PO HS [facility] Review of Systems ROS unobtainable: due to mental status (patient altered oriented 1) Exam - Constitutional Vitals: Temp Pulse Resp BP Pulse Ox 97.8 F 92 H 26 H 123/78 97 11/25/16 01:09 11/25/16 05:56 11/25/16 05:56 11/25/16 05:56 11/25/16 05:56 General appearance: Present: severe distress - EENT Eyes: Present: PERRL ENT: hearing intact - Neck Neck: Present: supple - Respiratory Respiratory effort: normal Respiratory: bilateral: rales (Coarse) - Cardiovascular Heart rate: 84 Rhythm: regular Heart Sounds: Present: S1 & S2 - Extremities Extremities: no ischemia Peripheral Pulses: within normal limits - Abdominal General gastrointestinal: Present: soft, non-tender Male genitourinary: Present: deferred - Rectal Rectal Exam: deferred - Integumentary Integumentary: Present: clear, warm, dry - Musculoskeletal Musculoskeletal: strength equal bilaterally, generalized weakness - Psychiatric Psychiatric: appropriate mood/affect, other (Alert and orinted X1) - Neurologic Neurologic: moves all extremities - Allied Health Allied health notes reviewed: nursing Results - Labs CBC & Chem 7: 11/25/16 01:12 11/25/16 01:12 Labs: Laboratory Last Values WBC 16.4 K/mm3 (4.5-11.0) H 11/25/16 01:12 RBC 3.52 M/mm3 (3.65-5.03) L 11/25/16 01:12 Hgb 10.3 gm/dl (11.8-15.2) L 11/25/16 01:12 Hct 31.4 % (35.5-45.6) L 11/25/16 01:12 MCV 89 fl (84-94) 11/25/16 01:12 MCH 29 pg (28-32) 11/25/16 01:12 MCHC 33 % (32-34) 11/25/16 01:12 RDW 14.8 % (13.2-15.2) 11/25/16 01:12 Plt Count 335 K/mm3 (140-440) 11/25/16 01:12 Add Manual Diff Complete 11/25/16 01:12 Total Counted 100 11/25/16 01:12 Seg Neuts % (Manual) 91.0 % (40.0-70.0) H 11/25/16 01:12 Band Neutrophils % 4.0 % 11/25/16 01:12 Lymphocytes % (Manual) 2.0 % (13.4-35.0) L 11/25/16 01:12 Reactive Lymphs % (Man) 0 % 11/25/16 01:12 Monocytes % (Manual) 3.0 % (0.0-7.3) 11/25/16 01:12 Eosinophils % (Manual) 0 % (0.0-4.3) 11/25/16 01:12 Basophils % (Manual) 0 % (0.0-1.8) 11/25/16 01:12 Metamyelocytes % 0 % 11/25/16 01:12 Myelocytes % 0 % 11/25/16 01:12 Promyelocytes % 0 % 11/25/16 01:12 Blast Cells % 0 % 11/25/16 01:12 Nucleated RBC % Not Reportable 11/25/16 01:12 Seg Neutrophils # Man 14.9 K/mm3 (1.8-7.7) H 11/25/16 01:12 Band Neutrophils # 0.7 K/mm3 11/25/16 01:12 Lymphocytes # (Manual) 0.3 K/mm3 (1.2-5.4) L 11/25/16 01:12 Abs React Lymphs (Man) 0.0 K/mm3 11/25/16 01:12 Monocytes # (Manual) 0.5 K/mm3 (0.0-0.8) 11/25/16 01:12 Eosinophils # (Manual) 0.0 K/mm3 (0.0-0.4) 11/25/16 01:12 Basophils # (Manual) 0.0 K/mm3 (0.0-0.1) 11/25/16 01:12 Metamyelocytes # 0.0 K/mm3 11/25/16 01:12 Myelocytes # 0.0 K/mm3 11/25/16 01:12 Promyelocytes # 0.0 K/mm3 11/25/16 01:12 Blast Cells # 0.0 K/mm3 11/25/16 01:12 WBC Morphology Not Reportable 11/25/16 01:12 Hypersegmented Neuts Not Reportable 11/25/16 01:12 Hyposegmented Neuts Not Reportable 11/25/16 01:12 Hypogranular Neuts Not Reportable 11/25/16 01:12 Smudge Cells Not Reportable 11/25/16 01:12 Toxic Granulation Not Reportable 11/25/16 01:12 Toxic Vacuolation Not Reportable 11/25/16 01:12 Dohle Bodies Not Reportable 11/25/16 01:12 Pelger-Huet Anomaly Not Reportable 11/25/16 01:12 Erin Rods Not Reportable 11/25/16 01:12 Platelet Estimate Consistent w auto 11/25/16 01:12 Clumped Platelets Not Reportable 11/25/16 01:12 Plt Clumps, EDTA Not Reportable 11/25/16 01:12 Large Platelets Not Reportable 11/25/16 01:12 Giant Platelets Not Reportable 11/25/16 01:12 Platelet Satelliting Not Reportable 11/25/16 01:12 Plt Morphology Comment Not Reportable 11/25/16 01:12 RBC Morphology Normal 11/25/16 01:12 Dimorphic RBCs Not Reportable 11/25/16 01:12 Polychromasia Not Reportable 11/25/16 01:12 Hypochromasia Not Reportable 11/25/16 01:12 Poikilocytosis Not Reportable 11/25/16 01:12 Anisocytosis Not Reportable 11/25/16 01:12 Microcytosis Not Reportable 11/25/16 01:12 Macrocytosis Not Reportable 11/25/16 01:12 Spherocytes Not Reportable 11/25/16 01:12 Pappenheimer Bodies Not Reportable 11/25/16 01:12 Sickle Cells Not Reportable 11/25/16 01:12 Target Cells Not Reportable 11/25/16 01:12 Tear Drop Cells Not Reportable 11/25/16 01:12 Ovalocytes Not Reportable 11/25/16 01:12 Helmet Cells Not Reportable 11/25/16 01:12 [place] Bodies Not Reportable 11/25/16 01:12 [place] Rings Not Reportable 11/25/16 01:12 [place] Cells Not Reportable 11/25/16 01:12 Bite Cells Not Reportable 11/25/16 01:12 Crenated Cell Not Reportable 11/25/16 01:12 Elliptocytes Not Reportable 11/25/16 01:12 Acanthocytes (Spur) Not Reportable 11/25/16 01:12 Rouleaux Not Reportable 11/25/16 01:12 Hemoglobin C Crystals Not Reportable 11/25/16 01:12 Schistocytes Not Reportable 11/25/16 01:12 Malaria parasites Not Reportable 11/25/16 01:12 Kang Bodies Not Reportable 11/25/16 01:12 Hem Pathologist Commnt No 11/25/16 01:12 D-Dimer 4483.33 ng/mlDDU (0-234) H 11/25/16 01:13 Sodium 141 mmol/L (137-145) 11/25/16 01:12 Potassium 4.2 mmol/L (3.6-5.0) 11/25/16 01:12 Chloride 101.2 mmol/L (98-107) 11/25/16 01:12 Carbon Dioxide 23 mmol/L (22-30) 11/25/16 01:12 Anion Gap 21 mmol/L 11/25/16 01:12 BUN 18 mg/dL (9-20) 11/25/16 01:12 Creatinine 0.7 mg/dL (0.8-1.5) L 11/25/16 01:12 Estimated GFR > 60 ml/min 11/25/16 01:12 BUN/Creatinine Ratio 25.71 % 11/25/16 01:12 Glucose 137 mg/dL (75-100) H 11/25/16 01:12 Calcium 8.9 mg/dL (8.4-10.2) 11/25/16 01:12 Total Bilirubin 0.30 mg/dL (0.1-1.2) 11/25/16 01:12 AST 20 units/L (5-40) 11/25/16 01:12 ALT 7 units/L (7-56) 11/25/16 01:12 Alkaline Phosphatase 57 units/L (35-129) 11/25/16 01:12 Troponin T 0.131 ng/mL (0.00-0.029) H* D 11/25/16 04:13 NT-Pro-B Natriuret Pep 2032 pg/mL (0-900) H 11/25/16 01:13 Total Protein 7.1 g/dL (6.3-8.2) 11/25/16 01:12 Albumin 2.8 g/dL (3.9-5) L 11/25/16 01:12 Albumin/Globulin Ratio 0.7 % 11/25/16 01:12 Triglycerides 82 mg/dL (2-149) 11/25/16 01:13 Cholesterol 131 mg/dL (50-199) 11/25/16 01:13 LDL Cholesterol Direct 72 mg/dL (50-130) 11/25/16 01:13 HDL Cholesterol 43 mg/dL (40-59) 11/25/16 01:13 Cholesterol/HDL Ratio 3.04 % 11/25/16 01:13 Assessment and Plan Assessment and plan: Acute respiratory failure with hypoxia. Patient oxygen saturation improved with BiPAP 35 , currently SPO2 >95 %. No acute respiratory distress noted. ABG as necessary Aggressive nebulizers therapy Oxygen supplement Supportive care Pulmonology consulted Acute metabolic encephalopathy Treat under line causes Elevated troponin Admit to Telemetry for continues cardiac nurse EKG Normal sinus rhythm with 82 bpm) Started on Asprin Serial cardiac enzyme and follow cardiac enzymes Troponin Lipid panel ordered Cardiology Evaluation COPD exacerbation Duoneb every 6 hours Started on Solumedrol every 8 hours Volume overload/ ascites/Elevated BNP Lasix IV 40 mg given Closely monitor renal function and electrolytes Eleavted D-dimer CTA revealed no pulmonary embolism Bilateral VL venous Doppler ordered Malnutrition Swallow and speech evaluation Nutrition consulted DVT prophylaxis Heparin Advance Directives: Yes VTE prophylaxis?: Chemical Contraindication Mechanical VTE Prophylaxis: Treatment Not Indicated Plan of care discussed with patient/family: Yes <KIM SHORT - Last Filed: 11/25/16 16:13> History of Present Illness Date of admission: 11/25/16 06:58 Medications and Allergies Active Meds: Active Medications Albuterol/Ipratropium (Duoneb *Not For Prn Use*) 1 ampul IH TIDRT [facility] Last Admin: 11/25/16 13:07 Dose: 1 ampul Albuterol/Ipratropium (Duoneb *Not For Prn Use*) 1 ampul IH Q6HRT [facility] Last Admin: 11/25/16 15:44 Dose: Not Given Aspirin (Halfprin Ec) 81 mg PO QDAY [facility] Last Admin: 11/25/16 11:03 Dose: Not Given Atorvastatin Calcium (Lipitor) 10 mg PO QHS [facility] Bisacodyl (Dulcolax) 10 mg GA QDAY PRN PRN Reason: constipation unrelieved by MOM Docusate Sodium (Colace) 100 mg PO DAILY [facility] Last Admin: 11/25/16 11:03 Dose: Not Given Enoxaparin Sodium (Lovenox) 50 mg 1 mg/kg (50 mg) SUB-Q Q12HR [facility] Famotidine (Pepcid) 20 mg PO HS [facility] Clindamycin HCl (Cleocin 600 Mg/50 Ml) 600 mg in 50 mls @ 100 mls/hr IV Q8HR [facility] PRN Reason: Protocol Methylprednisolone Sodium Succinate (Solu-Medrol) 40 mg IV Q8HR [facility] Last Admin: 11/25/16 15:55 Dose: 40 mg Metoprolol Tartrate (Lopressor) 12.5 mg PO BID [facility] Exam - Constitutional Vitals: Temp Pulse Resp BP Pulse Ox 97.8 F 94 H 20 118/85 99 11/25/16 01:09 11/25/16 13:28 11/25/16 13:28 11/25/16 11:15 11/25/16 13:31 - Extremities Extremities: No edema, normal temperature, normal color - Abdominal General gastrointestinal: Present: non-distended, normal bowel sounds Male genitourinary: Present: deferred Results - Labs CBC & Chem 7: 11/25/16 01:12 11/25/16 01:12 Labs: Laboratory Last Values WBC 16.4 K/mm3 (4.5-11.0) H 11/25/16 01:12 RBC 3.52 M/mm3 (3.65-5.03) L 11/25/16 01:12 Hgb 10.3 gm/dl (11.8-15.2) L 11/25/16 01:12 Hct 31.4 % (35.5-45.6) L 11/25/16 01:12 MCV 89 fl (84-94) 11/25/16 01:12 MCH 29 pg (28-32) 11/25/16 01:12 MCHC 33 % (32-34) 11/25/16 01:12 RDW 14.8 % (13.2-15.2) 11/25/16 01:12 Plt Count 335 K/mm3 (140-440) 11/25/16 01:12 Add Manual Diff Complete 11/25/16 01:12 Total Counted 100 11/25/16 01:12 Seg Neuts % (Manual) 91.0 % (40.0-70.0) H 11/25/16 01:12 Band Neutrophils % 4.0 % 11/25/16 01:12 Lymphocytes % (Manual) 2.0 % (13.4-35.0) L 11/25/16 01:12 Reactive Lymphs % (Man) 0 % 11/25/16 01:12 Monocytes % (Manual) 3.0 % (0.0-7.3) 11/25/16 01:12 Eosinophils % (Manual) 0 % (0.0-4.3) 11/25/16 01:12 Basophils % (Manual) 0 % (0.0-1.8) 11/25/16 01:12 Metamyelocytes % 0 % 11/25/16 01:12 Myelocytes % 0 % 11/25/16 01:12 Promyelocytes % 0 % 11/25/16 01:12 Blast Cells % 0 % 11/25/16 01:12 Nucleated RBC % Not Reportable 11/25/16 01:12 Seg Neutrophils # Man 14.9 K/mm3 (1.8-7.7) H 11/25/16 01:12 Band Neutrophils # 0.7 K/mm3 11/25/16 01:12 Lymphocytes # (Manual) 0.3 K/mm3 (1.2-5.4) L 11/25/16 01:12 Abs React Lymphs (Man) 0.0 K/mm3 11/25/16 01:12 Monocytes # (Manual) 0.5 K/mm3 (0.0-0.8) 11/25/16 01:12 Eosinophils # (Manual) 0.0 K/mm3 (0.0-0.4) 11/25/16 01:12 Basophils # (Manual) 0.0 K/mm3 (0.0-0.1) 11/25/16 01:12 Metamyelocytes # 0.0 K/mm3 11/25/16 01:12 Myelocytes # 0.0 K/mm3 11/25/16 01:12 Promyelocytes # 0.0 K/mm3 11/25/16 01:12 Blast Cells # 0.0 K/mm3 11/25/16 01:12 WBC Morphology Not Reportable 11/25/16 01:12 Hypersegmented Neuts Not Reportable 11/25/16 01:12 Hyposegmented Neuts Not Reportable 11/25/16 01:12 Hypogranular Neuts Not Reportable 11/25/16 01:12 Smudge Cells Not Reportable 11/25/16 01:12 Toxic Granulation Not Reportable 11/25/16 01:12 Toxic Vacuolation Not Reportable 11/25/16 01:12 Dohle Bodies Not Reportable 11/25/16 01:12 Pelger-Huet Anomaly Not Reportable 11/25/16 01:12 Erin Rods Not Reportable 11/25/16 01:12 Platelet Estimate Consistent w auto 11/25/16 01:12 Clumped Platelets Not Reportable 11/25/16 01:12 Plt Clumps, EDTA Not Reportable 11/25/16 01:12 Large Platelets Not Reportable 11/25/16 01:12 Giant Platelets Not Reportable 11/25/16 01:12 Platelet Satelliting Not Reportable 11/25/16 01:12 Plt Morphology Comment Not Reportable 11/25/16 01:12 RBC Morphology Normal 11/25/16 01:12 Dimorphic RBCs Not Reportable 11/25/16 01:12 Polychromasia Not Reportable 11/25/16 01:12 Hypochromasia Not Reportable 11/25/16 01:12 Poikilocytosis Not Reportable 11/25/16 01:12 Anisocytosis Not Reportable 11/25/16 01:12 Microcytosis Not Reportable 11/25/16 01:12 Macrocytosis Not Reportable 11/25/16 01:12 Spherocytes Not Reportable 11/25/16 01:12 Pappenheimer Bodies Not Reportable 11/25/16 01:12 Sickle Cells Not Reportable 11/25/16 01:12 Target Cells Not Reportable 11/25/16 01:12 Tear Drop Cells Not Reportable 11/25/16 01:12 Ovalocytes Not Reportable 11/25/16 01:12 Helmet Cells Not Reportable 11/25/16 01:12 [place] Bodies Not Reportable 11/25/16 01:12 [place] Rings Not Reportable 11/25/16 01:12 [place] Cells Not Reportable 11/25/16 01:12 Bite Cells Not Reportable 11/25/16 01:12 Crenated Cell Not Reportable 11/25/16 01:12 Elliptocytes Not Reportable 11/25/16 01:12 Acanthocytes (Spur) Not Reportable 11/25/16 01:12 Rouleaux Not Reportable 11/25/16 01:12 Hemoglobin C Crystals Not Reportable 11/25/16 01:12 Schistocytes Not Reportable 11/25/16 01:12 Malaria parasites Not Reportable 11/25/16 01:12 Kang Bodies Not Reportable 11/25/16 01:12 Hem Pathologist Commnt No 11/25/16 01:12 D-Dimer 4483.33 ng/mlDDU (0-234) H 11/25/16 01:13 POC ABG pH 7.545 (7.35-7.45) H 11/25/16 02:03 POC ABG pCO2 30.1 (35-45) L 11/25/16 02:03 POC ABG pO2 61 (80-105) L 11/25/16 02:03 POC ABG HCO3 26.1 11/25/16 02:03 POC ABG Total CO2 27 11/25/16 02:03 POC ABG O2 Sat 94 11/25/16 02:03 POC ABG Base Excess 4 11/25/16 02:03 FiO2 40 % 11/25/16 02:03 Sodium 141 mmol/L (137-145) 11/25/16 01:12 Potassium 4.2 mmol/L (3.6-5.0) 11/25/16 01:12 Chloride 101.2 mmol/L (98-107) 11/25/16 01:12 Carbon Dioxide 23 mmol/L (22-30) 11/25/16 01:12 Anion Gap 21 mmol/L 11/25/16 01:12 BUN 18 mg/dL (9-20) 11/25/16 01:12 Creatinine 0.7 mg/dL (0.8-1.5) L 11/25/16 01:12 Estimated GFR > 60 ml/min 11/25/16 01:12 BUN/Creatinine Ratio 25.71 % 11/25/16 01:12 Glucose 137 mg/dL (75-100) H 11/25/16 01:12 Lactic Acid 1.40 mmol/L (0.7-2.0) 11/25/16 11:10 Calcium 8.9 mg/dL (8.4-10.2) 11/25/16 01:12 Total Bilirubin 0.30 mg/dL (0.1-1.2) 11/25/16 01:12 AST 20 units/L (5-40) 11/25/16 01:12 ALT 7 units/L (7-56) 11/25/16 01:12 Alkaline Phosphatase 57 units/L (35-129) 11/25/16 01:12 Troponin T 0.124 ng/mL (0.00-0.029) H* 11/25/16 07:13 NT-Pro-B Natriuret Pep 2032 pg/mL (0-900) H 11/25/16 01:13 Total Protein 7.1 g/dL (6.3-8.2) 11/25/16 01:12 Albumin 2.8 g/dL (3.9-5) L 11/25/16 01:12 Albumin/Globulin Ratio 0.7 % 11/25/16 01:12 Triglycerides 82 mg/dL (2-149) 11/25/16 01:13 Cholesterol 131 mg/dL (50-199) 11/25/16 01:13 LDL Cholesterol Direct 72 mg/dL (50-130) 11/25/16 01:13 HDL Cholesterol 43 mg/dL (40-59) 11/25/16 01:13 Cholesterol/HDL Ratio 3.04 % 11/25/16 01:13 Urine Color Yellow (Yellow) 11/25/16 11:45 Urine Turbidity Clear (Clear) 11/25/16 11:45 Urine pH 5.0 (5.0-7.0) 11/25/16 11:45 Ur Specific [place] > 1.059 (1.003-1.030) H 11/25/16 11:45 Urine Protein 100 mg/dl mg/dL (Negative) 11/25/16 11:45 Urine Glucose (UA) 50 mg/dL (Negative) 11/25/16 11:45 Urine Ketones Neg mg/dL (Negative) 11/25/16 11:45 Urine Blood Lg (Negative) 11/25/16 11:45 Urine Nitrite Neg (Negative) 11/25/16 11:45 Urine Bilirubin Neg (Negative) 11/25/16 11:45 Urine Urobilinogen < 2.0 mg/dL (<2.0) 11/25/16 11:45 Ur Leukocyte Esterase Neg (Negative) 11/25/16 11:45 Urine WBC (Auto) 7.0 /HPF (0.0-6.0) H 11/25/16 11:45 Urine RBC (Auto) 13.0 /HPF (0.0-6.0) 11/25/16 11:45 U Epithel Cells (Auto) 1.0 /HPF (0-13.0) 11/25/16 11:45 Urine Mucus 1+ /HPF 11/25/16 11:45 Assessment and Plan Assessment and plan: I saw and evaluated the patient. I agree with the findings and the plan of care as documented in the Nurse Practitioner's~note, with the following corrections and additions: Patient presented with shortness of breath: A/P 1.NSTEMI. Cardiology following. Conservativemanagement with Aspirin, beta blockers. 2.Acute respiratory failure. supplemental oxygen. Pulm evaluation 3.Acute DVT left lower ext. Start Lovenox subcut Q12h
[2016-11-25] MEDS: DUONEB *Not for PRN Use IH SCH ×5 (08:00→21:59)
[2016-11-25] MEDS ORDERED: DUONEB *Not for PRN Use IH ONE (08:05)
[2016-11-25 08:50] LABS: ISTAT Base Excess 4; ISTAT HCO3 26.1; ISTAT PCO2 30.1 (35-45); ISTAT PH 7.545 (7.35-7.45); ISTAT PO2 61 (80-105); ISTAT SO2 94; ISTAT TCO2 27
[2016-11-25] MEDS ORDERED: NON-FORMULARY (Ranitidine Hcl 150 MG) PO SCH (10:00)
[2016-11-25] MEDS ORDERED: [UNRECOGNIZED DRUG - REMARK] PO SCH (10:00)
[2016-11-25] MEDS ORDERED: HEPARIN SUB-Q SCH (10:00)
[2016-11-25] MEDS ORDERED: CASTOR OIL PO SCH (10:00)
[2016-11-25] MEDS: HALFPRIN EC PO SCH (11:03)
[2016-11-25] MEDS: COLACE PO SCH (11:03)
--- NOTE | 2016-11-25 12:01 | Consultation ---
History of Present Illness Consult date: 11/25/16 Requesting physician: SHAHID HERNÁNDEZ Consult reason: elevated troponin History of present illness: The patient is an 86 year old male who is followed by Dr. New in the office with a history of hypertension, CVA, COPD, prostate CA, bilateral PE, dementia. He is nonverbal and lethargic on evaluation with no family at bedside and thus HPI is obtained per the chart. Per records, the pt presented the emergency department via EMS from home with shortness of breath and some signs of respiratory distress. The patient is on home health care hospice and is DNR code status. Upon EMS arrival, pt was found to have a pulse ox of about 80% on room air and had audible crackles. He improved when he was placed on CPAP in route. Following admission, D-dimer was found to be is elevated; chest CTA was negative for PE, showed COPD with fibrosis, bilateral lower lung atelectasis with mild effusions, significant upper abdominal ascites per radiology report. Troponin was also found to be elevated, and thus cardiology has been consulted. Past History Past Medical History: cancer (prostate), COPD (with fibrosis and dementia), hyperlipidemia, stroke Past Surgical History: No surgical history Social history: , lives with family, AND/DNR-allow natural Family history: CAD, stroke Medications and Allergies Allergies Allergy/AdvReac Type Severity Reaction Status Date / Time No Known Allergies Allergy Verified 11/25/16 01:09 Home Medications Medication Instructions Recorded Confirmed Last Taken Type Garlic [Odor Free Garlic] 100 mg PO DAILY 07/12/15 11/25/16 07/11/15 History Aspirin EC [Aspirin Enteric Coated 81 mg PO QDAY 11/25/16 11/25/16 Unknown History TAB] [place] Oil (Nf) 60 ml PO QDAY 11/25/16 11/25/16 Unknown History Docusate Sodium [Colace ORAL LIQ] 100 mg PO DAILY 11/25/16 11/25/16 Unknown History Ranitidine HCl [Zantac 15mg/ml 150 mg PO BID 11/25/16 11/25/16 Unknown History Oral Liq] Active Meds: Active Medications Albuterol/Ipratropium (Duoneb *Not For Prn Use*) 1 ampul IH TIDRT [facility] Last Admin: 11/25/16 08:10 Dose: 1 ampul Albuterol/Ipratropium (Duoneb *Not For Prn Use*) 1 ampul IH Q6HRT [facility] Last Admin: 11/25/16 08:00 Dose: 1 ampul Aspirin (Halfprin Ec) 81 mg PO QDAY [facility] Last Admin: 11/25/16 11:03 Dose: Not Given Bisacodyl (Dulcolax) 10 mg RI QDAY PRN PRN Reason: constipation unrelieved by MOM Docusate Sodium (Colace) 100 mg PO DAILY [facility] Last Admin: 11/25/16 11:03 Dose: Not Given Famotidine (Pepcid) 20 mg PO HS [facility] Furosemide (Lasix) 40 mg IV ONCE ONE Stop: 11/25/16 12:54 Heparin Sodium (Porcine) (Heparin) 5,000 unit SUB-Q Q12HR [facility] Last Admin: 11/25/16 11:54 Dose: 5,000 unit Methylprednisolone Sodium Succinate (Solu-Medrol) 40 mg IV Q8HR [facility] Review of Systems ROS unobtainable: due to mental status Physical Examination Vital Signs Temp Pulse Resp BP Pulse Ox 97.8 F 107 H 37 H 127/77 94 11/25/16 01:09 11/25/16 01:09 11/25/16 01:09 11/25/16 01:09 11/25/16 01:09 General appearance: other (lethargic, withdrawn, nonverbal) HEENT: Positive: PERRL, Normocephaly, Mucus Membranes Moist Neck: Positive: neck supple, trachea midline Cardiac: Positive: Reg Rate and Rhythm, S1/S2 Lungs: Positive: Rhonchi (bilaterally anteriorly ) Neuro: Positive: Other (lethargic, withdrawn, nonverbal) Abdomen: Positive: Unremarkable, Soft, Active Bowel Sounds. Negative: Tender Skin: Positive: Clear. Negative: Rash, Wound Musculoskeletal: No Pain, Normal Range of Motion Extremities: Present: edema (trace BLE ) Results 11/25/16 01:12 11/25/16 01:12 - Imaging and Cardiology Echo: report reviewed (08/2015: EF 55-60%, diastolic dysfunction, mild TR, RVSP 28mmHg) EKG: image reviewed EKG interpretations - Telemetry EKG Rhythm: Sinus Rhythm - EKG Sinus rhythms and dysrhythmias: sinus rhythm Chamber hypertrophy or enlargement: left atrial enlargement Myocardial infarction: septal LA (old age or ind Assessment and Plan F/u echo. Troponins flat and trending down. Given pt's advanced age, dementia, DNR code status, high risk for falls and multiple co-morbidities he is not currently a candidate for invasive cardiac management. Agree with current conservative management of NSTEMI. Cont ASA 81. Initiate Lopressor and lipitor. The patient has been seen in conjunction with Dr. Laird who agrees with the assessment and plan of care. - Patient Problems (1) NSTEMI (non-ST elevated myocardial infarction) Current Visit: Yes Status: Acute (2) Acute respiratory failure Current Visit: Yes Status: Acute Qualifiers: Respiratory failure complication: R (3) COPD (chronic obstructive pulmonary disease) Current Visit: Yes Status: Chronic Qualifiers: COPD type: C Chronic bronchitis type: C Emphysema type: E (4) Dementia Current Visit: Yes Status: Chronic Qualifiers: Dementia type: unspecified type Alzheimer's disease onset: A Dementia behavioral disturbance: without behavioral disturbance Qualified Code(s): F03.90 - Unspecified dementia without behavioral disturbance (5) Altered mental status Current Visit: Yes Status: Acute Qualifiers: Altered mental status type: unspecified Coma depth: C Coma timing: C Qualified Code(s): R41.82 - Altered mental status, unspecified (6) Hypertension Current Visit: Yes Status: Chronic Qualifiers: Hypertension type: H (7) History of CVA (cerebrovascular accident) Current Visit: Yes Status: Chronic (8) History of pulmonary embolism Current Visit: No Status: Resolved (9) History of prostate cancer Current Visit: Yes Status: Chronic (10) Advanced age Current Visit: Yes Status: Chronic (11) DNR (do not resuscitate) Current Visit: Yes Status: Chronic
[2016-11-25 12:14] LABS: Bilirubin,Urine NEG (Negative); Blood,Urine LG (Negative); Ketones,Urine NEG (Negative); Leukocyte Esterase,Urine NEG (Negative); Mucus,Urine 1+ /HPF; Nitrite,Urine NEG (Negative); Urobilinogen,Urine < 2.0 mg/dL (<2.0)
[2016-11-25] MEDS ORDERED: LASIX IV ONE (12:53)
[2016-11-25] MEDS ORDERED: LOVENOX SUB-Q SCH (16:00)
--- NOTE | 2016-11-25 16:08 | Consultation ---
History of Present Illness Consult date: 11/25/16 Requesting physician: KIM SHORT Reason for consult: other (Acute resp. failure) History of present illness: 86 yo with dementia on home hospice presents with altered mentation, LE edema, increased SOB and some increased work of breathing. Apparently has been having some dysphagia issues. + Cough/congestion. No obvious fevers, chills, chest pain. Active Medications Albuterol/Ipratropium (Duoneb *Not For Prn Use*) 1 ampul IH TIDRT [facility] Last Admin: 11/25/16 13:07 Dose: 1 ampul Albuterol/Ipratropium (Duoneb *Not For Prn Use*) 1 ampul IH Q6HRT [facility] Last Admin: 11/25/16 15:44 Dose: Not Given Aspirin (Halfprin Ec) 81 mg PO QDAY [facility] Last Admin: 11/25/16 11:03 Dose: Not Given Atorvastatin Calcium (Lipitor) 10 mg PO QHS [facility] Bisacodyl (Dulcolax) [address] QDAY PRN PRN Reason: constipation unrelieved by MOM Docusate Sodium (Colace) 100 mg PO DAILY [facility] Last Admin: 11/25/16 11:03 Dose: Not Given Enoxaparin Sodium (Lovenox) 50 mg 1 mg/kg (50 mg) SUB-Q Q12HR [facility] Famotidine (Pepcid) 20 mg PO HS [facility] Clindamycin HCl (Cleocin 600 Mg/50 Ml) 600 mg in 50 mls @ 100 mls/hr IV Q8HR [facility] PRN Reason: Protocol Methylprednisolone Sodium Succinate (Solu-Medrol) 40 mg IV Q8HR [facility] Last Admin: 11/25/16 15:55 Dose: 40 mg Metoprolol Tartrate (Lopressor) 12.5 mg PO BID [facility] Past History Past Medical History: cancer (prostate), COPD (with fibrosis and dementia), hyperlipidemia, stroke, other (dementia) Past Surgical History: No surgical history Social history: , lives with family, AND/DNR-allow natural . denies : smoking, alcohol abuse (prior extensive hx) Family history: CAD, stroke Medications and Allergies Allergies Allergy/AdvReac Type Severity Reaction Status Date / Time No Known Allergies Allergy Verified 11/25/16 01:09 Home Medications Medication Instructions Recorded Confirmed Last Taken Type Garlic [Odor Free Garlic] 100 mg PO DAILY 07/12/15 11/25/16 07/11/15 History Aspirin EC [Aspirin Enteric Coated 81 mg PO QDAY 11/25/16 11/25/16 Unknown History TAB] [place] Oil (Nf) 60 ml PO QDAY 11/25/16 11/25/16 Unknown History Docusate Sodium [Colace ORAL LIQ] 100 mg PO DAILY 11/25/16 11/25/16 Unknown History Ranitidine HCl [Zantac 15mg/ml 150 mg PO BID 11/25/16 11/25/16 Unknown History Oral Liq] Active Meds: Active Medications Albuterol/Ipratropium (Duoneb *Not For Prn Use*) 1 ampul IH TIDRT [facility] Last Admin: 11/25/16 13:07 Dose: 1 ampul Albuterol/Ipratropium (Duoneb *Not For Prn Use*) 1 ampul IH Q6HRT [facility] Last Admin: 11/25/16 15:44 Dose: Not Given Aspirin (Halfprin Ec) 81 mg PO QDAY [facility] Last Admin: 11/25/16 11:03 Dose: Not Given Atorvastatin Calcium (Lipitor) 10 mg PO QHS [facility] Bisacodyl (Dulcolax) [address] QDAY PRN PRN Reason: constipation unrelieved by MOM Docusate Sodium (Colace) 100 mg PO DAILY [facility] Last Admin: 11/25/16 11:03 Dose: Not Given Enoxaparin Sodium (Lovenox) 50 mg 1 mg/kg (50 mg) SUB-Q Q12HR [facility] Famotidine (Pepcid) 20 mg PO HS [facility] Clindamycin HCl (Cleocin 600 Mg/50 Ml) 600 mg in 50 mls @ 100 mls/hr IV Q8HR [facility] PRN Reason: Protocol Methylprednisolone Sodium Succinate (Solu-Medrol) 40 mg IV Q8HR [facility] Last Admin: 11/25/16 15:55 Dose: 40 mg Metoprolol Tartrate (Lopressor) 12.5 mg PO BID [facility] Review of Systems ROS unobtainable: due to mental status Physical Examination Vital signs: Vital Signs Temp Pulse Resp BP Pulse Ox 97.8 F 107 H 37 H 127/77 94 11/25/16 01:09 11/25/16 01:09 11/25/16 01:09 11/25/16 01:09 11/25/16 01:09 General appearance: no acute distress, other (cachectic) Eyes: non-icteric ENT: oropharynx moist Neck: supple Effort: normal Ascultation: Bilateral: rhonchi Cardiovascular: regular rate and rhythm (no mrg) Gastrointestinal: normoactive bowel sounds, soft, non-tender, non-distended Integumentary: normal Extremities: no cyanosis, cool, edema (trace) Musculoskeletal: no deformities non-focal exam (eyes open, nonverbal currently) mood appropriate, affect normal Results - Laboratory Findings CBC and BMP: 11/25/16 01:12 11/25/16 01:12 ABG POC ABG pH 7.545 (7.35-7.45) H 11/25/16 02:03 POC ABG pCO2 30.1 (35-45) L 11/25/16 02:03 POC ABG pO2 61 (80-105) L 11/25/16 02:03 POC ABG HCO3 26.1 11/25/16 02:03 POC ABG Total CO2 27 11/25/16 02:03 POC ABG O2 Sat 94 11/25/16 02:03 PT/INR, D-dimer D-Dimer 4483.33 ng/mlDDU (0-234) H 11/25/16 01:13 Abnormal lab findings: Abnormal Labs 11/25/16 11/25/16 07:13 11:45 Troponin T 0.124 H* Ur Specific [place] > 1.059 H Urine WBC (Auto) 7.0 H - Diagnostic Findings Chest x-ray: report reviewed, image reviewed CT scan - chest: report reviewed, image reviewed Assessment and Plan Imp: 1. Dementia 2. OP dysphagia 3. NSTEMI 4. Pleural effusions/ascites, suggestive of either CHF or liver disease 5. Acute respiratory failure, hypoxia 6. Cachexia 7. COPD exac/emphysema -> probable also mild bronchiectasis in lower lobes 8. Acute DVT Rec: 1. S/p Lasix already 2. Duonebs/Solumedrol 3. Echo 4. Lovenox therapeutic dose 5. Check INR and ammonia; consider liver imaging 6. ST evaluation 7. Add Clinda given aspiration risk Plan of care reviewed w/ daughter, she understands/agrees Thanks for the consult. Will follow closely.
[2016-11-25] MEDS: LOVENOX SUB-Q SCH ×2 (17:05→21:28)
[2016-11-25 17:30] LABS: INR 1.1 (0.87-1.13)
[2016-11-25] MEDS: CLEOCIN 600 MG/50 mL 600 MG/50 ML BAG IV SCH (17:37)
[2016-11-25] MEDS: LOPRESSOR PO SCH (21:27)
[2016-11-25] MEDS: PEPCID PO SCH (21:28)
[2016-11-26] MEDS: DUONEB *Not for PRN Use IH SCH ×4 (02:08→21:25)
[2016-11-26] MEDS: CLEOCIN 600 MG/50 mL 600 MG/50 ML BAG IV SCH ×3 (02:36→18:03)
[2016-11-26 08:07] LABS: Hematocrit 29.7 % (35.5-45.6); Hemoglobin 9.5 gm/dl (11.8-15.2); Mean Corpuscular HGB Conc 32 % (32-34); Mean Corpuscular Hemoglobin 29 pg (28-32); Mean Corpuscular Volume 89 fl (84-94); Platelet Count 291 K/mm3 (140-440); Red Blood Count 3.33 M/mm3 (3.65-5.03); Red Cell Distribution Width 15.3 % (13.2-15.2); White Blood Count 11.6 K/mm3 (4.5-11.0)
[2016-11-26 08:26] LABS: Anion Gap 23 mmol/L; BUN/Creatinine Ratio 35.71; Blood Urea Nitrogen 25 mg/dL (9-20); Calcium 8.5 mg/dL (8.4-10.2); Carbon Dioxide 24 mmol/L (22-30); Chloride 102.4 mmol/L (98-107); Glucose 114 mg/dL (75-100); Potassium 4.2 mmol/L (3.6-5.0); Sodium 145 mmol/L (137-145)
[2016-11-26 09:02] LABS: Blastocytes % (Manual) 0 %
[2016-11-26 09:03] LABS: RBC Morphology Normal
[2016-11-26 10:26] LABS: Diff Status Complete
--- NOTE | 2016-11-26 10:27 | Progress Note ---
Assessment and Plan Await f/u echo. Currently stable cardiac status. Cont present conservative cardiac management. The patient has been seen in conjunction with Dr. Laird who agrees with the assessment and plan of care. - Patient Problems (1) NSTEMI (non-ST elevated myocardial infarction) Current Visit: Yes Status: Acute (2) Acute respiratory failure Current Visit: Yes Status: Acute Qualifiers: Respiratory failure complication: R (3) COPD (chronic obstructive pulmonary disease) Current Visit: Yes Status: Chronic Qualifiers: COPD type: C Chronic bronchitis type: C Emphysema type: E (4) Dementia Current Visit: Yes Status: Chronic Qualifiers: Dementia type: unspecified type Alzheimer's disease onset: A Dementia behavioral disturbance: without behavioral disturbance Qualified Code(s): F03.90 - Unspecified dementia without behavioral disturbance (5) Altered mental status Current Visit: Yes Status: Acute Qualifiers: Altered mental status type: unspecified Coma depth: C Coma timing: C Qualified Code(s): R41.82 - Altered mental status, unspecified (6) Hypertension Current Visit: Yes Status: Chronic Qualifiers: Hypertension type: H (7) History of CVA (cerebrovascular accident) Current Visit: Yes Status: Chronic (8) History of pulmonary embolism Current Visit: No Status: Resolved (9) History of prostate cancer Current Visit: Yes Status: Chronic (10) Advanced age Current Visit: Yes Status: Chronic (11) DNR (do not resuscitate) Current Visit: Yes Status: Chronic Subjective Date of service: 11/26/16 Principal diagnosis: NSTEMI Interval history: Pt resting in bed, no apparent distress. remains lethargic, withdrawn, nonverbal. VSS. Objective Last Vital Signs Temp 98.9 F 11/26/16 05:07 Pulse 94 H 11/26/16 08:44 Resp 16 11/26/16 10:00 BP 121/68 11/26/16 05:07 Pulse Ox 97 11/26/16 10:00 - Physical Examination General: Other (lethargic, withdrawn, nonverbal) HEENT: Positive: PERRL, Normocephaly, Mucus Membranes Moist Neck: Positive: neck supple, trachea midline Cardiac: Positive: Reg Rate and Rhythm, S1/S2 Lungs: Positive: Rhonchi Neuro: Positive: Other (lethargic, withdrawn, nonverbal) Abdomen: Positive: Unremarkable, Soft, Active Bowel Sounds. Negative: Tender Skin: Positive: Clear. Negative: Rash, Wound Musculoskeletal: No Pain, Normal Range of Motion Extremities: Present: edema (trace BLE ) - Labs and Meds Coagulation 11/25/16 Range/Units 16:36 PT 14.8 (12.2-14.9) Sec. INR 1.10 (0.87-1.13) CBC 11/26/16 Range/Units 06:58 WBC 11.6 H (4.5-11.0) K/mm3 RBC 3.33 L (3.65-5.03) M/mm3 Hgb 9.5 L (11.8-15.2) gm/dl Hct 29.7 L (35.5-45.6) % Plt Count 291 (140-440) K/mm3 Comprehensive Metabolic Panel 11/26/16 Range/Units 06:58 Sodium 145 (137-145) mmol/L Potassium 4.2 (3.6-5.0) mmol/L Chloride 102.4 (98-107) mmol/L Carbon Dioxide 24 (22-30) mmol/L BUN 25 H (9-20) mg/dL Creatinine 0.7 L (0.8-1.5) mg/dL Glucose 114 H (75-100) mg/dL Calcium 8.5 (8.4-10.2) mg/dL - Imaging and Cardiology EKG: image reviewed Echo: pending, report reviewed (08/2015: EF 55-60%, diastolic dysfunction, mild TR, RVSP 28mmHg) - EKG Sinus rhythms and dysrhythmias: sinus rhythm Chamber hypertrophy or enlargement: left atrial enlargement Myocardial infarction: septal [place] (old age or ind
[2016-11-26] MEDS: LOVENOX SUB-Q SCH ×2 (10:39→22:40)
[2016-11-26] MEDS: COLACE PO SCH (10:46)
[2016-11-26] MEDS: LOPRESSOR PO SCH ×2 (10:46→22:41)
[2016-11-26] MEDS: HALFPRIN EC PO SCH (10:46)
--- NOTE | 2016-11-26 11:13 | Vascular Lab Report ---
LOWER EXTREMITY VENOUS DUPLEX: REASON FOR EXAM: Edema of the lower extremities. COMMENTS ON THE RIGHT: All veins visualized are freely compressible without evidence of internal echogenicity. Flow is spontaneous and phasic throughout. COMMENTS ON THE LEFT: Deep venous thrombosis noted in the deep femoral vein.. The remaining veins visualized are freely compressible without evidence of internal echogenicity. Spontaneous and phasic flow is present proximally. IMPRESSION: Deep venous thrombosis in the left lower extremity
--- NOTE | 2016-11-26 11:25 | Progress Note ---
Assessment and Plan Imp: 1. Dementia 2. OP dysphagia 3. NSTEMI 4. Pleural effusions/ascites, suggestive of either CHF or liver disease 5. Acute respiratory failure, hypoxia 6. Cachexia 7. COPD exac/emphysema -> probable also mild bronchiectasis in lower lobes 8. Acute DVT Rec: 1. S/p Lasix 11/25/16 2. Duonebs/Solumedrol same 3. Echo -> f/u 4. Lovenox therapeutic dose 5. ST evaluation pending 6. Added Clinda given aspiration risk/concerns 7. Pulm-dunaway stable currently; will monitor closely Plan of care reviewed w/ daughter, she understands/agrees Subjective Date of service: 11/26/16 Principal diagnosis: NSTEMI Interval history: No events. Arousable but only moans to questions so cannot give history. On 2L NC. Active Medications Albuterol/Ipratropium (Duoneb *Not For Prn Use*) 1 ampul IH Q6HRT [facility] Last Admin: 11/26/16 08:37 Dose: 1 ampul Aspirin (Halfprin Ec) 81 mg PO QDAY [facility] Last Admin: 11/26/16 10:46 Dose: Not Given Atorvastatin Calcium (Lipitor) 10 mg PO QHS [facility] Last Admin: 11/25/16 21:27 Dose: Not Given Bisacodyl (Dulcolax) 10 mg [place] QDAY PRN PRN Reason: constipation unrelieved by MOM Docusate Sodium (Colace) 100 mg PO DAILY [facility] Last Admin: 11/26/16 10:46 Dose: Not Given Enoxaparin Sodium (Lovenox) 50 mg 1 mg/kg (50 mg) SUB-Q Q12HR [facility] Last Admin: 11/26/16 10:39 Dose: 50 mg Famotidine (Pepcid) 20 mg PO HS [facility] Last Admin: 11/25/16 21:28 Dose: Not Given Clindamycin HCl (Cleocin 600 Mg/50 Ml) 600 mg in 50 mls @ 100 mls/hr IV Q8H [facility] PRN Reason: Protocol Last Admin: 11/26/16 10:37 Dose: 100 mls/hr Methylprednisolone Sodium Succinate (Solu-Medrol) 40 mg IV Q8HR [facility] Last Admin: 11/26/16 05:42 Dose: 40 mg Metoprolol Tartrate (Lopressor) 12.5 mg PO BID [facility] Last Admin: 11/26/16 10:46 Dose: Not Given Objective Vital Signs - 12hr 11/25/16 11/26/16 11/26/16 23:59 02:08 02:20 Temperature 97.6 F Pulse Rate 72 Pulse Rate [ 68 70 Anterior Bilateral Throughout] Respiratory 20 Rate Respiratory 18 20 Rate [Anterior Bilateral Throughout] Blood Pressure 100/54 O2 Sat by Pulse 98 Oximetry 11/26/16 11/26/16 11/26/16 04:15 05:07 08:36 Temperature 98.9 F Pulse Rate 57 L Pulse Rate [ Anterior Bilateral Throughout] Respiratory 18 Rate Respiratory Rate [Anterior Bilateral Throughout] Blood Pressure 121/68 O2 Sat by Pulse 96 97 97 Oximetry 11/26/16 11/26/16 11/26/16 08:37 08:44 10:00 Temperature Pulse Rate Pulse Rate [ 92 H 94 H Anterior Bilateral Throughout] Respiratory 16 Rate Respiratory 16 16 Rate [Anterior Bilateral Throughout] Blood Pressure O2 Sat by Pulse 97 Oximetry 11/26/16 10:46 Temperature Pulse Rate 94 H Pulse Rate [ Anterior Bilateral Throughout] Respiratory Rate Respiratory Rate [Anterior Bilateral Throughout] Blood Pressure 100/70 O2 Sat by Pulse Oximetry Constitutional: no acute distress, other (cachectic) Eyes: non-icteric ENT: oropharynx moist Neck: supple Effort: normal Ascultation: Bilateral: rhonchi Cardiovascular: regular rate and rhythm (no mrg) Gastrointestinal: normoactive bowel sounds, soft, non-tender, non-distended Integumentary: normal Extremities: no cyanosis, cool, edema (trace) Neurologic: non-focal exam (eyes open, nonverbal currently) Psychiatric: mood appropriate, affect normal CBC and BMP: 11/26/16 06:58 11/26/16 06:58 ABG, PT/INR, D-dimer: ABG POC ABG pH 7.545 (7.35-7.45) H 11/25/16 02:03 POC ABG pCO2 30.1 (35-45) L 11/25/16 02:03 POC ABG pO2 61 (80-105) L 11/25/16 02:03 POC ABG HCO3 26.1 11/25/16 02:03 POC ABG Total CO2 27 11/25/16 02:03 POC ABG O2 Sat 94 11/25/16 02:03 PT/INR, D-dimer PT 14.8 Sec. (12.2-14.9) 11/25/16 16:36 INR 1.10 (0.87-1.13) 11/25/16 16:36 D-Dimer 4483.33 ng/mlDDU (0-234) H 11/25/16 01:13 Abnormal lab findings: Abnormal Labs 11/25/16 11/25/16 11/25/16 07:13 11:45 16:36 WBC RBC Hgb Hct RDW Seg Neuts % (Manual) Lymphocytes % (Manual) Seg Neutrophils # Man Lymphocytes # (Manual) BUN Creatinine Glucose POC Glucose Ammonia 21.0 L Troponin T 0.124 H* Ur Specific [place] > 1.059 H Urine WBC (Auto) 7.0 H 11/25/16 11/26/16 11/26/16 18:03 06:58 06:58 WBC 11.6 H RBC 3.33 L Hgb 9.5 L Hct 29.7 L RDW 15.3 H Seg Neuts % (Manual) 89.0 H Lymphocytes % (Manual) 3.0 L Seg Neutrophils # Man 10.3 H Lymphocytes # (Manual) 0.3 L BUN 25 H Creatinine 0.7 L Glucose 114 H POC Glucose 111 H Ammonia Troponin T Ur Specific [place] Urine WBC (Auto) 11/26/16 07:49 WBC RBC Hgb Hct RDW Seg Neuts % (Manual) Lymphocytes % (Manual) Seg Neutrophils # Man Lymphocytes # (Manual) BUN Creatinine Glucose POC Glucose 141 H Ammonia Troponin T Ur Specific [place] Urine WBC (Auto) Chest x-ray: report reviewed, image reviewed CT scan - chest: report reviewed, image reviewed
[2016-11-26] MEDS ORDERED: D5W/NS W/KCL 20MEQ 20 MEQ/1,000 ML BAG IV SCH (14:00)
--- NOTE | 2016-11-26 15:04 | Progress Note ---
Assessment and Plan Acute respiratory failure with hypoxia. Patient oxygen saturation improved with BiPAP 35 , currently off BiPAP, SPO2 > 95 %. likely from aspiration No acute respiratory distress noted. Aggressive nebulizers therapy Oxygen supplement Supportive care Pulmonology following Acute metabolic encephalopathy Treat underline causes likely from dementia and respiratory failure Elevated troponin monitor at Telemetry for continues cardiac rehabilitation specialist EKG Normal sinus rhythm with 82 bpm Started on Asprin, statin, beta kostas Cardiology Evaluated and recommended medical Mx COPD exacerbation Duoneb every 6 hours cont on Solumedrol every 8 hours Volume overload/ ascites/Elevated BNP etiology unknown, likely from malnutrition vs liver pathology vs CHF Closely monitor renal function and electrolytes will get CT abdomen and 2d echo Eleavted D-dimer/ LLE DVT CTA revealed no pulmonary embolism LLE DVT on venous Doppler negative will place on lovenox Malnutrition Swallow and speech evaluation was done today and he was recommended to have PEG tube for high risk for aspiration GI consulted for possible PEG tube placement DVT prophylaxis lovenox Subjective Date of service: 11/26/16 Principal diagnosis: NSTEMI Interval history: Patient seen and examined. Medical records and medication list reviewed. No acute event overnight noted by the RN. Discussed plan of care at bedside with patient's family. Objective - Exam Narrative Exam: General: Other (lethargic, withdrawn, nonverbal) HEENT: Positive: PERRL, Normocephaly, Mucus Membranes Moist Neck: Positive: neck supple, trachea midline Cardiac: Positive: Reg Rate and Rhythm, S1/S2 Lungs: Positive: Rhonchi Neuro: Positive: Other (lethargic, withdrawn, nonverbal) Abdomen: Positive: Unremarkable, Soft, Active Bowel Sounds. Negative: Tender Skin: Positive: Clear. Negative: Rash, Wound Musculoskeletal: No Pain, Normal Range of Motion Extremities: Present: edema (trace BLE ) - Constitutional Vitals: Vital Signs - 12hr 11/26/16 11/26/16 11/26/16 04:15 05:07 08:36 Temperature 98.9 F Pulse Rate 57 L Pulse Rate [ Anterior Bilateral Throughout] Respiratory 18 Rate Respiratory Rate [Anterior Bilateral Throughout] Blood Pressure 121/68 O2 Sat by Pulse 96 97 97 Oximetry 11/26/16 11/26/16 11/26/16 08:37 08:44 10:00 Temperature Pulse Rate Pulse Rate [ 92 H 94 H Anterior Bilateral Throughout] Respiratory 16 Rate Respiratory 16 16 Rate [Anterior Bilateral Throughout] Blood Pressure O2 Sat by Pulse 97 Oximetry 11/26/16 11/26/16 10:46 11:00 Temperature 97.5 F L Pulse Rate 94 H 94 H Pulse Rate [ Anterior Bilateral Throughout] Respiratory 22 Rate Respiratory Rate [Anterior Bilateral Throughout] Blood Pressure 100/70 101/75 O2 Sat by Pulse Oximetry - Labs CBC & Chem 7: 11/26/16 06:58 11/26/16 06:58 Labs: Abnormal lab results 11/25/16 11/25/16 11/26/16 Range/Units 16:36 18:03 06:58 WBC 11.6 H (4.5-11.0) K/mm3 RBC 3.33 L (3.65-5.03) M/mm3 Hgb 9.5 L (11.8-15.2) gm/dl Hct 29.7 L (35.5-45.6) % RDW 15.3 H (13.2-15.2) % Seg Neuts % (Manual) 89.0 H (40.0-70.0) % Lymphocytes % (Manual) 3.0 L (13.4-35.0) % Seg Neutrophils # Man 10.3 H (1.8-7.7) K/mm3 Lymphocytes # (Manual) 0.3 L (1.2-5.4) K/mm3 BUN (9-20) mg/dL Creatinine (0.8-1.5) mg/dL Glucose (75-100) mg/dL POC Glucose 111 H (70-105) Ammonia 21.0 L (25-60) umol/L 11/26/16 11/26/16 11/26/16 Range/Units 06:58 07:49 11:23 WBC (4.5-11.0) K/mm3 RBC (3.65-5.03) M/mm3 Hgb (11.8-15.2) gm/dl Hct (35.5-45.6) % RDW (13.2-15.2) % Seg Neuts % (Manual) (40.0-70.0) % Lymphocytes % (Manual) (13.4-35.0) % Seg Neutrophils # Man (1.8-7.7) K/mm3 Lymphocytes # (Manual) (1.2-5.4) K/mm3 BUN 25 H (9-20) mg/dL Creatinine 0.7 L (0.8-1.5) mg/dL Glucose 114 H (75-100) mg/dL POC Glucose 141 H 151 H (70-105) Ammonia (25-60) umol/L
--- NOTE | 2016-11-26 15:49 | Event Note ---
Date: 11/26/16 - full consult dictated - EGD/PEG when cleared by Cardiology/pulmonary
--- NOTE | 2016-11-26 16:36 | Cat Scan Report ---
CT of the abdomen and pelvis without contrast. History: Abdominal distention. Findings: There are bilateral small pleural effusions. Minimal subsegmental atelectasis is present bilaterally. The liver is small in size with no focal abnormalities. The spleen is unremarkable. There is a large volume of ascites. The pancreas is atrophic but otherwise unremarkable. There is contrast in the collecting system of the kidneys, presumably related to CT angiography of the lungs performed yesterday. No hydronephrosis or renal masses. The gallbladder is hyperdense, also probably related to intravenous contrast injected yesterday. There are no pelvic masses. Contrast is seen within the urinary bladder. Radiation seeds are seen within the prostate. Anasarca is present. Impression: 1. Large volume of ascites. 2. Bilateral pleural effusions and bibasilar subsegmental atelectasis. 3. Pancreatic atrophy.
[2016-11-26] MEDS: PEPCID PO SCH (22:41)
--- NOTE | 2016-11-27 01:57 | Consultation ---
REFERRING PHYSICIAN: Annamarie Smith M.D. INDICATION: 1. PEG tube placement. 2. Weight loss. HISTORY OF PRESENT ILLNESS: The patient is an 86-year-old white male with history of CVA, dementia, COPD with fibrosis. The patient presented and was admitted for shortness of breath. Since being admitted, the patient has been noted to have a non-STEMI. He is currently being followed by Cardiology. GI is consulted for possible PEG tube placement. The patient with no other significant GI complaints. The patient has been having general malnutrition. The patient had a swallow evaluation and a PEG tube was recommended. PAST MEDICAL HISTORY: 1. COPD with fibrosis. 2. Dementia. 3. CVA. MEDICATIONS: See chart. ALLERGIES: No known drug allergies. SOCIAL HISTORY: From home. No tobacco. FAMILY HISTORY: Negative for colon cancer. REVIEW OF SYSTEMS: The patient unable to give full review of systems. Per chart: GENERAL: General weakness. HEENT: No visual complaints. PULMONARY: Denies shortness of breath, cough or chest pain. GASTROINTESTINAL: Reports mild nausea. All points of 13-point review of systems otherwise were negative. PHYSICAL EXAMINATION: VITAL SIGNS: Temperature 97.5, pulse 94, respirations 20, blood pressure 101/75. GENERAL: Fairly nourished, no acute distress. HEENT: Pupils equal, round, reactive. PULMONARY: Rhonchi. CARDIOVASCULAR: Regular rhythm. Normal S1, S2. ABDOMEN: Positive bowel sounds, soft. SKIN: No obvious rashes. LABORATORY DATA: Pertinent for white count 11.6, hemoglobin/hematocrit 9.5/29.7, platelet count 291. Chem-7 within normal limits. ASSESSMENT: An 86-year-old male with multiple medical problems as noted above, admitted with shortness of breath, found to have a non-STEMI. The patient is deemed to be conservative management per Cardiology. The patient had a speech evaluation and was recommended that a PEG tube be placed. PLAN: 1. Continue current medication and diet. 2. Wait for Cardiology input. 3. When the patient is cleared by Cardiology and Primary Team, we will proceed with PEG tube placement. JOB# [id number] CAB/NTS
[2016-11-27] MEDS: CLEOCIN 600 MG/50 mL 600 MG/50 ML BAG IV SCH ×3 (02:13→18:56)
[2016-11-27] MEDS: DUONEB *Not for PRN Use IH SCH ×4 (02:49→20:17)
--- NOTE | 2016-11-27 10:43 | Event Note ---
Date: 11/27/16 Will schedule for EGD/PEG once cleared by cardiology and pulmonology.
--- NOTE | 2016-11-27 11:09 | Progress Note ---
Assessment and Plan Echo reviewed - EF 55-60%, impaired relaxation, RVSP 55mmHg. Currently stable cardiac status. Cont present conservative cardiac management. Given NSTEMI, advanced age, and multiple co-morbidities, pt is currently at moderate cardiovascular risk for EGD/PEG. However, there are no immediate cardiac contraindications to proceeding with EGD/PEG at this time. Assessment and plan reviewed in depth with pt's daughter at bedside. The patient has been seen in conjunction with Dr. Laird who agrees with the assessment and plan of care. - Patient Problems (1) NSTEMI (non-ST elevated myocardial infarction) Current Visit: Yes Status: Acute (2) Acute respiratory failure Current Visit: Yes Status: Acute Qualifiers: Respiratory failure complication: R (3) COPD (chronic obstructive pulmonary disease) Current Visit: Yes Status: Chronic Qualifiers: COPD type: C Chronic bronchitis type: C Emphysema type: E (4) Dementia Current Visit: Yes Status: Chronic Qualifiers: Dementia type: unspecified type Alzheimer's disease onset: A Dementia behavioral disturbance: without behavioral disturbance Qualified Code(s): F03.90 - Unspecified dementia without behavioral disturbance (5) Altered mental status Current Visit: Yes Status: Acute Qualifiers: Altered mental status type: unspecified Coma depth: C Coma timing: C Qualified Code(s): R41.82 - Altered mental status, unspecified (6) Hypertension Current Visit: Yes Status: Chronic Qualifiers: Hypertension type: H (7) History of CVA (cerebrovascular accident) Current Visit: Yes Status: Chronic (8) History of pulmonary embolism Current Visit: No Status: Resolved (9) History of prostate cancer Current Visit: Yes Status: Chronic (10) Pulmonary hypertension Current Visit: Yes Status: Acute (11) Advanced age Current Visit: Yes Status: Chronic (12) DNR (do not resuscitate) Current Visit: Yes Status: Chronic Subjective Date of service: 11/27/16 Principal diagnosis: NSTEMI Interval history: Pt resting in bed, no apparent distress. remains lethargic, withdrawn, nonverbal. VSS. Daughter at bedside. Objective Last Vital Signs Temp 97.6 F 11/27/16 08:00 Pulse 74 11/27/16 08:00 Resp 20 11/27/16 08:00 BP 116/75 11/27/16 08:00 Pulse Ox 97 11/27/16 08:00 - Physical Examination General: Other (lethargic, withdrawn, nonverbal) HEENT: Positive: PERRL, Normocephaly, Mucus Membranes Moist Neck: Positive: neck supple, trachea midline Cardiac: Positive: Reg Rate and Rhythm, S1/S2 Lungs: Positive: Decreased Breath Sounds Neuro: Positive: Other (lethargic, withdrawn, nonverbal) Abdomen: Positive: Unremarkable, Soft, Active Bowel Sounds. Negative: Tender Skin: Positive: Clear. Negative: Rash, Wound Musculoskeletal: No Pain, Normal Range of Motion Extremities: Present: edema (trace BLE ) - Imaging and Cardiology EKG: image reviewed Echo: pending, report reviewed (08/2015: EF 55-60%, diastolic dysfunction, mild TR, RVSP 28mmHg) - EKG Sinus rhythms and dysrhythmias: sinus rhythm Chamber hypertrophy or enlargement: left atrial enlargement Myocardial infarction: septal [place] (old age or ind
[2016-11-27] MEDS ORDERED: D5W/NS W/KCL 20MEQ 20 MEQ/1,000 ML BAG IV SCH (13:00)
[2016-11-27] MEDS: COLACE PO SCH (13:20)
[2016-11-27] MEDS: LOPRESSOR PO SCH ×2 (13:20→23:03)
[2016-11-27] MEDS: HALFPRIN EC PO SCH (13:21)
[2016-11-27] MEDS: LOVENOX SUB-Q SCH ×2 (13:45→23:04)
[2016-11-27] MEDS: PEPCID IV SCH ×2 (13:46→23:03)
--- NOTE | 2016-11-27 13:48 | Progress Note ---
Assessment and Plan Imp: 1. Dementia w/ ? overlying hypoactive delirium 2. OP dysphagia 3. NSTEMI 4. Pleural effusions/ascites, suggestive of either CHF or liver disease 5. Acute respiratory failure, hypoxia 6. Cachexia 7. COPD exac/emphysema -> probable also mild bronchiectasis in lower lobes 8. Acute DVT 9. Pulm HTN Rec: 1. Duonebs/Solumedrol same 2. Lovenox therapeutic dose 3. Clinda given aspiration risk/concerns 4. Mentation appears worse today and he looks weaker; would hold off on PEG for the moment and -> repeat labs/ABG/CXR & place DHT in the interim for TFs/ nutrition 5. Prognosis is poor; he is hospice-appropriate due to severe dementia but family has now made him full code 6. Complex decision-making No family present Subjective Date of service: 11/27/16 Principal diagnosis: NSTEMI Interval history: No events. Somnolent/minimally arousable. Good respiratory effort with unlabored respirations. On 2L NC. Active Medications Albuterol/Ipratropium (Duoneb *Not For Prn Use*) 1 ampul IH Q6HRT [facility] Last Admin: 11/27/16 08:09 Dose: 1 ampul Atorvastatin Calcium (Lipitor) 10 mg PO QHS [facility] Last Admin: 11/26/16 22:41 Dose: Not Given Bisacodyl (Dulcolax) 10 mg [place] QDAY PRN PRN Reason: constipation unrelieved by MOM Docusate Sodium (Colace) 100 mg PO DAILY [facility] Last Admin: 11/27/16 13:20 Dose: Not Given Enoxaparin Sodium (Lovenox) 50 mg 1 mg/kg (50 mg) SUB-Q Q12HR [facility] Last Admin: 11/26/16 22:40 Dose: 50 mg Famotidine (Pepcid) 20 mg IV BID [facility] Clindamycin HCl (Cleocin 600 Mg/50 Ml) 600 mg in 50 mls @ 100 mls/hr IV Q8H [place] PRN Reason: Protocol Last Admin: 11/27/16 02:13 Dose: 100 mls/hr Potassium Chloride/Dextrose/Sod Cl (D5w/Ns W/Kcl 20meq) 20 meq in 1,000 mls @ 75 mls/hr IV DIRECT [facility] Last Admin: 11/27/16 13:22 Dose: 75 mls/hr Methylprednisolone Sodium Succinate (Solu-Medrol) 40 mg IV Q8HR [facility] Last Admin: 11/27/16 05:42 Dose: 40 mg Metoprolol Tartrate (Lopressor) 12.5 mg PO BID [facility] Last Admin: 11/27/16 13:20 Dose: Not Given Objective Vital Signs - 12hr 11/27/16 11/27/16 11/27/16 04:00 08:00 13:20 Temperature 97.8 F 97.6 F Pulse Rate 78 74 78 Respiratory 18 20 Rate Blood Pressure 114/69 116/75 O2 Sat by Pulse 97 97 Oximetry Constitutional: no acute distress, other (cachectic) Eyes: non-icteric ENT: oropharynx moist Neck: supple Effort: normal Ascultation: Bilateral: rhonchi Cardiovascular: regular rate and rhythm (no mrg) Gastrointestinal: normoactive bowel sounds, soft, non-tender, non-distended Integumentary: normal Extremities: no cyanosis, cool, edema (trace) Neurologic: non-focal exam (eyes open, nonverbal currently) Psychiatric: mood appropriate, affect normal CBC and BMP: 11/26/16 06:58 11/26/16 06:58 ABG, PT/INR, D-dimer: ABG POC ABG pH 7.545 (7.35-7.45) H 11/25/16 02:03 POC ABG pCO2 30.1 (35-45) L 11/25/16 02:03 POC ABG pO2 61 (80-105) L 11/25/16 02:03 POC ABG HCO3 26.1 11/25/16 02:03 POC ABG Total CO2 27 11/25/16 02:03 POC ABG O2 Sat 94 11/25/16 02:03 PT/INR, D-dimer PT 14.8 Sec. (12.2-14.9) 11/25/16 16:36 INR 1.10 (0.87-1.13) 11/25/16 16:36 D-Dimer 4483.33 ng/mlDDU (0-234) H 11/25/16 01:13 Abnormal lab findings: Abnormal Labs 11/25/16 11/25/16 11/25/16 07:13 11:45 16:36 WBC RBC Hgb Hct RDW Seg Neuts % (Manual) Lymphocytes % (Manual) Seg Neutrophils # Man Lymphocytes # (Manual) BUN Creatinine Glucose POC Glucose Ammonia 21.0 L Troponin T 0.124 H* Ur Specific [place] > 1.059 H Urine WBC (Auto) 7.0 H 11/25/16 11/26/16 11/26/16 18:03 06:58 06:58 WBC 11.6 H RBC 3.33 L Hgb 9.5 L Hct 29.7 L RDW 15.3 H Seg Neuts % (Manual) 89.0 H Lymphocytes % (Manual) 3.0 L Seg Neutrophils # Man 10.3 H Lymphocytes # (Manual) 0.3 L BUN 25 H Creatinine 0.7 L Glucose 114 H POC Glucose 111 H Ammonia Troponin T Ur Specific [place] Urine WBC (Auto) 11/26/16 11/26/16 11/26/16 07:49 11:23 16:36 WBC RBC Hgb Hct RDW Seg Neuts % (Manual) Lymphocytes % (Manual) Seg Neutrophils # Man Lymphocytes # (Manual) BUN Creatinine Glucose POC Glucose 141 H 151 H 132 H Ammonia Troponin T Ur Specific [place] Urine WBC (Auto) 11/27/16 07:36 WBC RBC Hgb Hct RDW Seg Neuts % (Manual) Lymphocytes % (Manual) Seg Neutrophils # Man Lymphocytes # (Manual) BUN Creatinine Glucose POC Glucose 156 H Ammonia Troponin T Ur Specific [place] Urine WBC (Auto) Chest x-ray: report reviewed, image reviewed
[2016-11-27] MEDS ORDERED: SIMPLE SYRUP FEEDTUBE PRN ×2 (14:00)
[2016-11-27] MEDS ORDERED: SODIUM BICARBONATE FEEDTUBE PRN (14:00)
[2016-11-27] MEDS ORDERED: PANCREAZE DR 10,500 UNIT FEEDTUBE PRN (14:00)
--- NOTE | 2016-11-27 15:48 | Progress Note ---
Assessment and Plan Acute respiratory failure with hypoxia. Patient oxygen saturation improved with BiPAP 35 , currently off BiPAP, SPO2 > 95 %. likely from aspiration No acute respiratory distress noted. Aggressive nebulizers therapy Oxygen supplement Supportive care Pulmonology following Acute metabolic encephalopathy Treat underline causes likely from dementia and respiratory failure more lathergic today Elevated troponin monitor at Telemetry for continues awake overnight monitor EKG Normal sinus rhythm with 82 bpm Started on Asprin, statin, beta kostas Cardiology Evaluated and recommended medical Mx COPD exacerbation Duoneb every 6 hours cont on Solumedrol every 8 hours Volume overload/ ascites/Elevated BNP etiology unknown, likely from malnutrition vs liver pathology vs CHF Closely monitor renal function and electrolytes CT abdomen pelvis showed ascitis and 2d echo showed normal EF liver function normal. will get hepatitis pannel plan for paracenthesis today Eleavted D-dimer/ LLE DVT CTA revealed no pulmonary embolism LLE DVT on venous Doppler negative will continue on lovenox Severe protein- calorie Malnutrition Swallow and speech evaluation was done and he was recommended to have PEG tube for high risk for aspiration GI consulted for possible PEG tube placement we will start TF now with DHT and will consider PEG if tolerates TF with DHT DVT prophylaxis lovenox Code status daughter changed his code status to full code yesterday but changed back to DNR again today Subjective Date of service: 11/27/16 Principal diagnosis: NSTEMI Interval history: Patient seen and examined. appears more lathergic today No acute event overnight noted by the RN. Discussed plan of care with pt's daughter by phone. Objective - Exam Narrative Exam: General: Other (lethargic, withdrawn, nonverbal) HEENT: Positive: PERRL, Normocephaly, Mucus Membranes Moist Neck: Positive: neck supple, trachea midline Cardiac: Positive: Reg Rate and Rhythm, S1/S2 Lungs: Positive: Rhonchi Neuro: Positive: Other (lethargic, withdrawn, nonverbal) Abdomen: Positive: Unremarkable, Soft, Active Bowel Sounds. Negative: Tender Skin: Positive: Clear. Negative: Rash, Wound Musculoskeletal: No Pain, Normal Range of Motion Extremities: Present: edema (trace BLE ) - Constitutional Vitals: Vital Signs - 12hr 11/27/16 11/27/16 11/27/16 04:00 08:00 12:00 Temperature 97.8 F 97.6 F 97.9 F Pulse Rate 78 74 78 Respiratory 18 20 20 Rate Blood Pressure 114/69 116/75 116/84 O2 Sat by Pulse 97 97 97 Oximetry 11/27/16 13:20 Temperature Pulse Rate 78 Respiratory Rate Blood Pressure O2 Sat by Pulse Oximetry - Labs CBC & Chem 7: 11/26/16 06:58 11/26/16 06:58 Labs: Abnormal lab results 11/26/16 11/27/16 Range/Units 16:36 07:36 POC Glucose 132 H 156 H (70-105)
--- NOTE | 2016-11-27 18:03 | XRay Report ---
FINAL REPORT EXAM: XR ABDOMEN 1V AP HISTORY: FT placement TECHNIQUE: Single-view abdomen 1 image PRIORS: None. FINDINGS: Metallic tip feeding tube is seen coursing to the proximal stomach. There is a nonobstructed bowel-gas pattern. There is increased opacity in the left lung base. No acute osseous abnormality is identified. IMPRESSION: 1. Metallic tip feeding tube courses to the stomach. 2. Atelectasis versus infiltrate in the left lung base.
[2016-11-27 18:20] LABS: ISTAT Base Excess 7; ISTAT HCO3 30.3; ISTAT PCO2 40.9 (35-45); ISTAT PH 7.477 (7.35-7.45); ISTAT PO2 79 (80-105); ISTAT SO2 96; ISTAT TCO2 32
[2016-11-28] MEDS: CLEOCIN 600 MG/50 mL 600 MG/50 ML BAG IV SCH ×3 (03:01→18:09)
[2016-11-28 06:58] LABS: Alanine Aminotransferase 7 units/L (7-56); Albumin 2.7 g/dL (3.9-5); Albumin/Globulin Ratio 0.7 %; Alkaline Phosphatase 50 units/L (35-129); Anion Gap 15 mmol/L; Blood Urea Nitrogen 24 mg/dL (9-20); Calcium 8.9 mg/dL (8.4-10.2); Carbon Dioxide 26 mmol/L (22-30); Chloride 110.4 mmol/L (98-107); Glucose 157 mg/dL (75-100); Potassium 3.9 mmol/L (3.6-5.0); Sodium 147 mmol/L (137-145); Total Protein 6.5 g/dL (6.3-8.2)
[2016-11-28 06:59] LABS: Hemoglobin 8.7 gm/dl (11.8-15.2)
[2016-11-28 07:12] LABS: Hematocrit 27.8 % (35.5-45.6); Mean Corpuscular HGB Conc 31 % (32-34); Mean Corpuscular Hemoglobin 28 pg (28-32); Mean Corpuscular Volume 90 fl (84-94); Platelet Count 306 K/mm3 (140-440); Red Blood Count 3.08 M/mm3 (3.65-5.03); Red Cell Distribution Width 15.1 % (13.2-15.2); White Blood Count 12.6 K/mm3 (4.5-11.0)
[2016-11-28] MEDS: DUONEB *Not for PRN Use IH SCH ×2 (08:08→14:29)
--- NOTE | 2016-11-28 09:08 | XRay Report ---
Portable chest: SOB. The heart is normal in size. The aorta is tortuous. There is diffuse coarsening of the bronchovascular markings. The lungs are somewhat hypoventilated and the possibility of small effusions difficult to totally exclude as questioned on prior study of November 25. There has been interval placement of a nasogastric tube into the stomach. No other findings. Impression: The findings may represent mild congestive changes. The findings have significantly changed since prior exam in August 2015 making the diagnosis of primary lung disease less likely.
[2016-11-28 09:48] LABS: Blastocytes % (Manual) 0 %; Total Cells Counted Percent 0
[2016-11-28 09:49] LABS: Diff Status Complete; RBC Morphology Normal
[2016-11-28] MEDS: LOPRESSOR PO SCH ×2 (10:09→22:50)
[2016-11-28] MEDS: COLACE PO SCH (11:09)
[2016-11-28] MEDS: LOVENOX SUB-Q SCH ×2 (11:10→22:50)
[2016-11-28] MEDS: PEPCID PO SCH ×2 (11:11→22:50)
--- NOTE | 2016-11-28 12:01 | Progress Note ---
Assessment and Plan Imp: 1. Dementia w/ ? overlying hypoactive delirium 2. OP dysphagia 3. NSTEMI 4. Pleural effusions/ascites, suggestive of either CHF or liver disease 5. Acute respiratory failure, hypoxia 6. Cachexia 7. COPD exac/emphysema -> probable also mild bronchiectasis in lower lobes 8. Acute DVT 9. Pulm HTN Rec: 1. Duonebs; no wheezing on exam and mentation worse, possibly due to steroids - > would discontinue the Solumedrol 2. Lovenox therapeutic dose 3. Clindamycin given possible aspiration 4. Mentation is poor and patient very weak-appearing; would hold off on PEG today, cont. TFs + free water, and re-assess 11/29/16 5. Now that he is on TFs would stop IVFs in light of ascites/pleural effusions; agree w/ paracentesis 6. Prognosis is poor; he is hospice-appropriate due to severe dementia, bed- bound status, etc.; note he is DNR again No family present Subjective Date of service: 11/28/16 Principal diagnosis: NSTEMI Interval history: No events. Somnolent/minimally arousable. Adequate respiratory effort with unlabored respirations. Weak cough. On 2L NC. Active Medications Albuterol/Ipratropium (Duoneb *Not For Prn Use*) 1 ampul IH TIDRT [facility] Last Admin: 11/28/16 08:08 Dose: 1 ampul Lipase/Protease/Amylase ([place] 10,500 Unit) 1 each FEEDTUBE PRN PRN PRN Reason: For Clogged Feeding Tube Atorvastatin Calcium (Lipitor) 10 mg PO QHS [facility] Last Admin: 11/27/16 23:35 Dose: 10 mg Bisacodyl (Dulcolax) 10 mg [place] QDAY PRN PRN Reason: constipation unrelieved by MOM Docusate Sodium (Colace) 100 mg PO DAILY [facility] Last Admin: 11/27/16 13:20 Dose: Not Given Enoxaparin Sodium (Lovenox) 50 mg 1 mg/kg (50 mg) SUB-Q Q12HR [facility] Last Admin: 11/27/16 23:04 Dose: 50 mg Famotidine (Pepcid) 20 mg PO BID [facility] Clindamycin HCl (Cleocin 600 Mg/50 Ml) 600 mg in 50 mls @ 100 mls/hr IV Q8H [place] PRN Reason: Protocol Last Admin: 11/28/16 03:01 Dose: 100 mls/hr Metoprolol Tartrate (Lopressor) 12.5 mg PO BID [facility] Last Admin: 11/27/16 23:03 Dose: 12.5 mg Simple Syrup (Simple Syrup) 15 ml FEEDTUBE PRN PRN PRN Reason: Hypoglycemia Simple Syrup (Simple Syrup) 30 ml FEEDTUBE PRN PRN PRN Reason: Hypoglycemia Sodium Bicarbonate (Sodium Bicarbonate) 325 mg FEEDTUBE PRN PRN PRN Reason: For Clogged Feeding Tube Objective Vital Signs - 12hr 11/28/16 11/28/16 11/28/16 00:13 00:56 03:10 Temperature 97.7 F Pulse Rate 81 70 Pulse Rate [ Anterior Bilateral Throughout] Respiratory 16 17 Rate Respiratory Rate [Anterior Bilateral Throughout] Blood Pressure 128/87 O2 Sat by Pulse 96 97 Oximetry 11/28/16 11/28/16 11/28/16 05:28 08:10 08:19 Temperature 97.5 F L Pulse Rate 81 82 Pulse Rate [ 85 Anterior Bilateral Throughout] Respiratory 17 24 Rate Respiratory 15 Rate [Anterior Bilateral Throughout] Blood Pressure 126/85 150/90 O2 Sat by Pulse 97 98 Oximetry 11/28/16 11/28/16 08:20 08:38 Temperature Pulse Rate Pulse Rate [ 92 H Anterior Bilateral Throughout] Respiratory Rate Respiratory 16 Rate [Anterior Bilateral Throughout] Blood Pressure O2 Sat by Pulse 98 Oximetry Constitutional: no acute distress, other (cachectic) Eyes: non-icteric ENT: oropharynx moist Neck: supple Effort: normal Ascultation: Bilateral: rhonchi Cardiovascular: regular rate and rhythm (no mrg) Gastrointestinal: normoactive bowel sounds, soft, non-tender, non-distended Integumentary: normal Extremities: no cyanosis, cool, edema (trace) Neurologic: non-focal exam (eyes open, nonverbal currently) Psychiatric: other (unable to assess) CBC and BMP: 11/28/16 06:03 11/28/16 06:03 ABG, PT/INR, D-dimer: ABG POC ABG pH 7.477 (7.35-7.45) H 11/27/16 17:20 POC ABG pCO2 40.9 (35-45) 11/27/16 17:20 POC ABG pO2 79 (80-105) L 11/27/16 17:20 POC ABG HCO3 30.3 11/27/16 17:20 POC ABG Total CO2 32 11/27/16 17:20 POC ABG O2 Sat 96 11/27/16 17:20 PT/INR, D-dimer PT 14.8 Sec. (12.2-14.9) 11/25/16 16:36 INR 1.10 (0.87-1.13) 11/25/16 16:36 D-Dimer 4483.33 ng/mlDDU (0-234) H 11/25/16 01:13 Abnormal lab findings: Abnormal Labs 11/25/16 11/25/16 11/25/16 07:13 11:45 16:36 WBC RBC Hgb Hct MCHC RDW Seg Neuts % (Manual) Lymphocytes % (Manual) Seg Neutrophils # Man Lymphocytes # (Manual) POC ABG pH POC ABG pO2 Sodium Chloride BUN Creatinine Glucose POC Glucose Ammonia 21.0 L Troponin T 0.124 H* Albumin Ur Specific [place] > 1.059 H Urine WBC (Auto) 7.0 H 11/25/16 11/26/16 11/26/16 18:03 06:58 06:58 WBC 11.6 H RBC 3.33 L Hgb 9.5 L Hct 29.7 L MCHC RDW 15.3 H Seg Neuts % (Manual) 89.0 H Lymphocytes % (Manual) 3.0 L Seg Neutrophils # Man 10.3 H Lymphocytes # (Manual) 0.3 L POC ABG pH POC ABG pO2 Sodium Chloride BUN 25 H Creatinine 0.7 L Glucose 114 H POC Glucose 111 H Ammonia Troponin T Albumin Ur Specific [place] Urine WBC (Auto) 11/26/16 11/26/16 11/26/16 07:49 11:23 16:36 WBC RBC Hgb Hct MCHC RDW Seg Neuts % (Manual) Lymphocytes % (Manual) Seg Neutrophils # Man Lymphocytes # (Manual) POC ABG pH POC ABG pO2 Sodium Chloride BUN Creatinine Glucose POC Glucose 141 H 151 H 132 H Ammonia Troponin T Albumin Ur Specific [place] Urine WBC (Auto) 11/27/16 11/27/16 11/27/16 07:36 08:33 14:09 WBC RBC Hgb Hct MCHC RDW Seg Neuts % (Manual) Lymphocytes % (Manual) Seg Neutrophils # Man Lymphocytes # (Manual) POC ABG pH POC ABG pO2 Sodium Chloride BUN Creatinine Glucose POC Glucose 156 H 176 H 156 H Ammonia Troponin T Albumin Ur Specific [place] Urine WBC (Auto) 11/27/16 11/27/16 11/28/16 17:10 17:20 06:03 WBC 12.6 H RBC 3.08 L Hgb 8.7 L Hct 27.8 L MCHC 31 L RDW Seg Neuts % (Manual) Lymphocytes % (Manual) 1.0 L Seg Neutrophils # Man 12.5 H Lymphocytes # (Manual) 0.1 L POC ABG pH 7.477 H POC ABG pO2 79 L Sodium Chloride BUN Creatinine Glucose POC Glucose 168 H Ammonia Troponin T Albumin Ur Specific [place] Urine WBC (Auto) 11/28/16 11/28/16 06:03 07:25 WBC RBC Hgb Hct MCHC RDW Seg Neuts % (Manual) Lymphocytes % (Manual) Seg Neutrophils # Man Lymphocytes # (Manual) POC ABG pH POC ABG pO2 Sodium 147 H Chloride 110.4 H BUN 24 H Creatinine 0.5 L Glucose 157 H POC Glucose 173 H Ammonia Troponin T Albumin 2.7 L Ur Specific [place] Urine WBC (Auto) Chest x-ray: report reviewed, image reviewed (increased congestion)
--- NOTE | 2016-11-28 12:12 | Progress Note ---
Assessment and Plan Cont present conservative cardiac management. Given NSTEMI, advanced age, and multiple co-morbidities, pt is currently at moderate cardiovascular risk for EGD/PEG. However, there are no immediate cardiac contraindications to proceeding with EGD/PEG at this time. Currently stable cardiac status. Will see PRN. The patient has been seen in conjunction with Dr. Laird who agrees with the assessment and plan of care. - Patient Problems (1) NSTEMI (non-ST elevated myocardial infarction) Current Visit: Yes Status: Acute (2) Acute respiratory failure Current Visit: Yes Status: Acute Qualifiers: Respiratory failure complication: R (3) COPD (chronic obstructive pulmonary disease) Current Visit: Yes Status: Chronic Qualifiers: COPD type: C Chronic bronchitis type: C Emphysema type: E (4) Dementia Current Visit: Yes Status: Chronic Qualifiers: Dementia type: unspecified type Alzheimer's disease onset: A Dementia behavioral disturbance: without behavioral disturbance Qualified Code(s): F03.90 - Unspecified dementia without behavioral disturbance (5) Altered mental status Current Visit: Yes Status: Acute Qualifiers: Altered mental status type: unspecified Coma depth: C Coma timing: C Qualified Code(s): R41.82 - Altered mental status, unspecified (6) Hypertension Current Visit: Yes Status: Chronic Qualifiers: Hypertension type: H (7) History of CVA (cerebrovascular accident) Current Visit: Yes Status: Chronic (8) History of pulmonary embolism Current Visit: No Status: Resolved (9) History of prostate cancer Current Visit: Yes Status: Chronic (10) Pulmonary hypertension Current Visit: Yes Status: Acute (11) Advanced age Current Visit: Yes Status: Chronic (12) DNR (do not resuscitate) Current Visit: Yes Status: Chronic Subjective Date of service: 11/28/16 Principal diagnosis: NSTEMI Interval history: Pt resting in bed, no apparent distress. remains lethargic, withdrawn, nonverbal. VSS. Objective Last Vital Signs Temp 97.5 F L 11/28/16 08:19 Pulse 92 H 11/28/16 08:20 Resp 16 11/28/16 08:20 BP 150/90 11/28/16 08:19 Pulse Ox 98 11/28/16 08:38 - Physical Examination General: Other (lethargic, withdrawn, nonverbal) HEENT: Positive: PERRL, Normocephaly, Mucus Membranes Moist Neck: Positive: neck supple, trachea midline Cardiac: Positive: Reg Rate and Rhythm, S1/S2 Lungs: Positive: clear to auscultation Neuro: Positive: Other (lethargic, withdrawn, nonverbal) Abdomen: Positive: Unremarkable, Soft, Active Bowel Sounds. Negative: Tender Skin: Positive: Clear. Negative: Rash, Wound Musculoskeletal: No Pain, Normal Range of Motion Extremities: Present: edema (trace BLE ) - Labs and Meds Cardiac Enzymes 11/28/16 Range/Units 06:03 AST 15 (5-40) units/L CBC 11/28/16 Range/Units 06:03 WBC 12.6 H (4.5-11.0) K/mm3 RBC 3.08 L (3.65-5.03) M/mm3 Hgb 8.7 L (11.8-15.2) gm/dl Hct 27.8 L (35.5-45.6) % Plt Count 306 (140-440) K/mm3 Comprehensive Metabolic Panel 11/28/16 Range/Units 06:03 Sodium 147 H (137-145) mmol/L Potassium 3.9 (3.6-5.0) mmol/L Chloride 110.4 H (98-107) mmol/L Carbon Dioxide 26 (22-30) mmol/L BUN 24 H (9-20) mg/dL Creatinine 0.5 L (0.8-1.5) mg/dL Glucose 157 H (75-100) mg/dL Calcium 8.9 (8.4-10.2) mg/dL AST 15 (5-40) units/L ALT 7 (7-56) units/L Alkaline Phosphatase 50 (35-129) units/L Total Protein 6.5 (6.3-8.2) g/dL Albumin 2.7 L (3.9-5) g/dL - Imaging and Cardiology EKG: image reviewed Echo: pending, report reviewed (08/2015: EF 55-60%, diastolic dysfunction, mild TR, RVSP 28mmHg) - EKG Sinus rhythms and dysrhythmias: sinus rhythm Chamber hypertrophy or enlargement: left atrial enlargement Myocardial infarction: septal [place] (old age or ind
[2016-11-28] MEDS: NACL 0.9% 1000 ML 1,000 ML IV SCH ×2 (12:49→23:17)
[2016-11-28] MEDS ORDERED: ANCEF/STERILE WATER 2 GM/20 ML 2 GM/20 ML SYRINGE IV ONE (12:56)
[2016-11-28] MEDS ORDERED: ANCEF/STERILE WATER 2 GM/20 ML 2 GM/20 ML SYRINGE IV NR (13:00)
--- NOTE | 2016-11-28 13:18 | Anesthesia Consultation ---
Anesthesia Consult and Med Hx Date of service: 11/28/16 - Airway Anesthetic Teeth Evaluation: Poor ROM Head & Neck: Adequate Mental/Hyoid Distance: Adequate Mallampati Class: Class II Intubation Access Assessment: Probably Good - Pre-Operative Health Status ASA Pre-Surgery Classification: ASA4 Proposed Anesthetic Plan: MAC - Pulmonary Hx Smoking: Yes (10yearsago) Hx Asthma: No COPD: Yes (fibrosis, atelectasis) Hx Pneumonia: No Hx Sleep Apnea: No - Cardiovascular System Hx Hypertension: Yes Hx Coronary Artery Disease: Yes Hx Heart Attack/AMI: No Hx Angina: No Hx Percutaneous Transluminal Coronary Angioplasty (PTCA): No Hx Pacemaker: No Hx Internal Defibrillator: No Hx Valvular Heart Disease: No Hx Heart Murmur: No Hx Peripheral Vascular Disease: No - Central Nervous System Hx Seizures: No CVA: Yes Hx Psychiatric Problems: Yes (dementia, nonverbal) - Gastrointestinal Hx Ulcer: No Hx Gastroesophageal Reflux Disease: Yes (dysphagea, mulnutrition) - Endocrine Hx Renal Disease: No Hx End Stage Renal Disease: No Hx Cirrhosis: No Hx Liver Disease: No Hx Hypothyroidism: No Hx Hyperthyroidism: No - Hematic Hx Anemia: No Hx Sickle Cell Disease: No - Other Systems Hx Cancer: Yes (h/p prostate CA)
--- NOTE | 2016-11-28 13:19 | Anesthesia Day of Surgery ---
Anesthesia Day of Surgery - Day of Surgery Patient Examined: Yes Patient H&P Reviewed: Yes Patient is NPO: Yes Beta Blockers: Yes Cardiac Clearance: Yes Pulmonary Clearance: Yes
[2016-11-28] MEDS ORDERED: DIPRIVAN 10 MG/ML IV ONE (13:31)
--- NOTE | 2016-11-28 14:00 | Post Operative Note ---
Pre-op diagnosis: dysphagia, weight loss Post-op diagnosis: same Findings: EGD: hiatal hernia - mild gastritis - negative other Procedure: EGD/PEG Anesthesia: MAC Surgeon: DEMETRICE KENNEDY Estimated blood loss: none Pathology: none Condition: stable Disposition: floor
--- NOTE | 2016-11-28 16:32 | Progress Note ---
Assessment and Plan Acute respiratory failure with hypoxia. Patient oxygen saturation improved with BiPAP 35 , currently off BiPAP, SPO2 > 95 %. likely from aspiration No acute respiratory distress noted. 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 will get hepatitis pannel s/p paracenthesis today, removed 3.6L fluid Eleavted D-dimer/ LLE DVT CTA revealed no pulmonary embolism LLE DVT on venous Doppler negative will continue on lovenox Severe protein- calorie Malnutrition Swallow and speech evaluation was done and he was recommended to have PEG tube for high risk for aspiration GI consulted for possible PEG tube placement s/p PEG placement today h/o prostate cancer - ct abdomen/pelvis showed no obvious finding DVT prophylaxis lovenox Code status DNR Subjective Date of service: 11/28/16 Principal diagnosis: NSTEMI Interval history: Patient seen and examined. s/p PEG and paracenthesis today No acute event overnight noted by the RN. Discussed plan of care with pt's daughter at bedside. Objective - Exam Narrative Exam: General: Other (lethargic, nonverbal) HEENT: Positive: PERRL, Normocephaly, Mucus Membranes Moist Neck: Positive: neck supple, trachea midline Cardiac: Positive: Reg Rate and Rhythm, S1/S2 Lungs: Positive: Rhonchi Neuro: Positive: Other (lethargic, withdrawn, nonverbal) Abdomen: Positive: Unremarkable, Soft, Active Bowel Sounds. PEG on place Skin: Positive: Clear. Negative: Rash, Wound Musculoskeletal: No Pain, Normal Range of Motion Extremities: Present: edema (trace BLE ) - Constitutional Vitals: Vital Signs - 12hr 11/28/16 11/28/16 11/28/16 05:28 08:10 08:19 Temperature 97.5 F L Pulse Rate 81 82 Pulse Rate [ 85 Anterior Bilateral Throughout] Respiratory 17 24 Rate Respiratory 15 Rate [Anterior Bilateral Throughout] Blood Pressure 126/85 150/90 O2 Sat by Pulse 97 98 Oximetry 11/28/16 11/28/16 11/28/16 08:20 08:38 12:19 Temperature 97.6 F Pulse Rate 87 Pulse Rate [ 92 H Anterior Bilateral Throughout] Respiratory 20 Rate Respiratory 16 Rate [Anterior Bilateral Throughout] Blood Pressure 129/87 O2 Sat by Pulse 98 99 Oximetry 11/28/16 11/28/16 11/28/16 12:29 12:46 13:49 Temperature 97.6 F 97.6 F 98.5 F Pulse Rate 86 86 82 Pulse Rate [ Anterior Bilateral Throughout] Respiratory 24 24 22 Rate Respiratory Rate [Anterior Bilateral Throughout] Blood Pressure 106/78 106/78 122/80 O2 Sat by Pulse 98 98 100 Oximetry 11/28/16 11/28/16 14:04 14:19 Temperature Pulse Rate 80 75 Pulse Rate [ Anterior Bilateral Throughout] Respiratory 28 H 28 H Rate Respiratory Rate [Anterior Bilateral Throughout] Blood Pressure 95/66 103/73 O2 Sat by Pulse 98 99 Oximetry - Labs CBC & Chem 7: 11/28/16 06:03 11/28/16 06:03 Labs: Abnormal lab results 11/27/16 11/27/16 11/27/16 Range/Units 08:33 14:09 17:10 WBC (4.5-11.0) K/mm3 RBC (3.65-5.03) M/mm3 Hgb (11.8-15.2) gm/dl Hct (35.5-45.6) % MCHC (32-34) % Lymphocytes % (Manual) (13.4-35.0) % Seg Neutrophils # Man (1.8-7.7) K/mm3 Lymphocytes # (Manual) (1.2-5.4) K/mm3 POC ABG pH (7.35-7.45) POC ABG pO2 (80-105) Sodium (137-145) mmol/L Chloride (98-107) mmol/L BUN (9-20) mg/dL Creatinine (0.8-1.5) mg/dL Glucose (75-100) mg/dL POC Glucose 176 H 156 H 168 H (70-105) Albumin (3.9-5) g/dL 11/27/16 11/28/16 11/28/16 Range/Units 17:20 06:03 06:03 WBC 12.6 H (4.5-11.0) K/mm3 RBC 3.08 L (3.65-5.03) M/mm3 Hgb 8.7 L (11.8-15.2) gm/dl Hct 27.8 L (35.5-45.6) % MCHC 31 L (32-34) % Lymphocytes % (Manual) 1.0 L (13.4-35.0) % Seg Neutrophils # Man 12.5 H (1.8-7.7) K/mm3 Lymphocytes # (Manual) 0.1 L (1.2-5.4) K/mm3 POC ABG pH 7.477 H (7.35-7.45) POC ABG pO2 79 L (80-105) Sodium 147 H (137-145) mmol/L Chloride 110.4 H (98-107) mmol/L BUN 24 H (9-20) mg/dL Creatinine 0.5 L (0.8-1.5) mg/dL Glucose 157 H (75-100) mg/dL POC Glucose (70-105) Albumin 2.7 L (3.9-5) g/dL 11/28/16 11/28/16 Range/Units 07:25 11:13 WBC (4.5-11.0) K/mm3 RBC (3.65-5.03) M/mm3 Hgb (11.8-15.2) gm/dl Hct (35.5-45.6) % MCHC (32-34) % Lymphocytes % (Manual) (13.4-35.0) % Seg Neutrophils # Man (1.8-7.7) K/mm3 Lymphocytes # (Manual) (1.2-5.4) K/mm3 POC ABG pH (7.35-7.45) POC ABG pO2 (80-105) Sodium (137-145) mmol/L Chloride (98-107) mmol/L BUN (9-20) mg/dL Creatinine (0.8-1.5) mg/dL Glucose (75-100) mg/dL POC Glucose 173 H 185 H (70-105) Albumin (3.9-5) g/dL
--- NOTE | 2016-11-28 16:38 | Procedure Note ---
INDICATION: 1. Dysphagia. 2. Weight loss. MEDICATIONS: Propofol per DIRECT CARE PROFESSIONAL. COMPLICATIONS: None. DESCRIPTION OF PROCEDURE: The patient brought to procedure suite. The patient had the procedure discussed with family at length. All risks, complications, and benefits were discussed after which consent was gotten for the procedure performed. The patient was placed in left lateral decubitus position. Mouth block was placed in the patient's oral cavity. The patient was in supine position. After adequate sedation with medication as above, endoscope placed in the mouth and brought to the level of the second portion of duodenum. Retroflexion view was performed. The patient's vital signs remained stable throughout the procedure. FINDINGS: There was noted to be a small hiatal hernia in GE junction. The esophagus otherwise appeared to be normal. Mild gastritis noted in the stomach. The stomach otherwise appeared to be normal. Duodenum appeared to be normal. Retroflexion view performed in the stomach showed no other pathology other than noted above. After this, and especially using standard technique and transillumination, adequate placement of PEG was performed. A 20-Malay Pull PEG was then placed. Bump was noted to be at 3 cm. The patient tolerated the procedure well. No complications during the procedure. IMPRESSION: 1. Hiatal hernia. 2. Mild gastritis. 3. Otherwise, normal EGD. 4. PEG tube placement without obvious complications. RECOMMENDATIONS: 1. Standard PEG tube management, see chart. 2. Watch for signs of bleeding or infection. 3. Nutrition consult. 4. We will follow up in a.m. JOB# [id number] [facility]
--- NOTE | 2016-11-28 16:48 | Ultrasound Report ---
Ultrasound-guided paracentesis: Distended abdomen. Imaging of the abdomen demonstrated an optimum site in the right lower quadrant. The skin was cleansed and 1% lidocaine used for local anesthesia. The site was draped. A 5 M[place] Nuevolution catheter was placed through a small skin sadi. 120 cc of straw-colored fluid was initially removed in 2 syringes for laboratory evaluation with a total of 3.6 L removed. No complication encountered.
[2016-11-28 19:12] LABS: Basophils Body Fluid 0 %; Eosinophils Body Fluid 0 %; Reactive Lymph Body Fluid 0 %
[2016-11-28 19:51] LABS: pH, Body Fluid 7.468
[2016-11-29] MEDS: DUONEB *Not for PRN Use IH SCH ×4 (00:58→20:44)
[2016-11-29] MEDS: CLEOCIN 600 MG/50 mL 600 MG/50 ML BAG IV SCH ×3 (02:42→18:15)
[2016-11-29 04:56] LABS: Anion Gap 15 mmol/L; Blood Urea Nitrogen 22 mg/dL (9-20); Calcium 8.4 mg/dL (8.4-10.2); Carbon Dioxide 26 mmol/L (22-30); Glucose 93 mg/dL (75-100); Potassium 3.9 mmol/L (3.6-5.0); Sodium 149 mmol/L (137-145)
[2016-11-29] MEDS: D5/0.45NS 1,000 ML IV SCH (11:41)
[2016-11-29] MEDS: LOVENOX SUB-Q SCH ×2 (11:42→22:43)
[2016-11-29] MEDS: LOPRESSOR PO SCH ×2 (11:42→22:44)
[2016-11-29] MEDS: PEPCID PO SCH ×2 (11:44→22:43)
[2016-11-29] MEDS: COLACE PO SCH (12:31)
--- NOTE | 2016-11-29 13:20 | Progress Note ---
Assessment and Plan Imp: 1. Dementia w/ ? overlying hypoactive delirium 2. OP dysphagia 3. NSTEMI 4. Pleural effusions/ascites, suggestive of either CHF or liver disease 5. Acute respiratory failure, hypoxia 6. Cachexia 7. COPD exac/emphysema -> probable also mild bronchiectasis in lower lobes 8. Acute DVT 9. Pulm HTN 10. Ascites Rec: 1. Duonebs; no wheezing on exam and mentation worse, possibly due to steroids - > stopped Solumedrol 2. Lovenox therapeutic dose 3. Clindamycin empirically given possible aspiration, x ~ 7 days 4. Cont. TFs and free water per PEG 5. Prognosis is poor but pulm-dunaway he appears overall stable today; he is hospice-appropriate due to severe dementia, bed-bound status, etc.; note he is DNR again No family present Subjective Date of service: 11/29/16 Principal diagnosis: NSTEMI Interval history: PEG done. Somnolent/minimally arousable. Adequate respiratory effort with unlabored respirations. Weak cough. On 2L NC. Active Medications Albuterol/Ipratropium (Duoneb *Not For Prn Use*) 1 ampul IH TIDRT [facility] Last Admin: 11/29/16 08:16 Dose: 1 ampul Lipase/Protease/Amylase ([place] 10,500 Unit) 1 each FEEDTUBE PRN PRN PRN Reason: For Clogged Feeding Tube Atorvastatin Calcium (Lipitor) 10 mg PO QHS [facility] Last Admin: 11/28/16 22:50 Dose: 10 mg Bisacodyl (Dulcolax) 10 mg [place] QDAY PRN PRN Reason: constipation unrelieved by MOM Docusate Sodium (Colace) 100 mg PO DAILY [facility] Last Admin: 11/29/16 12:31 Dose: 100 mg Enoxaparin Sodium (Lovenox) 50 mg 1 mg/kg (50 mg) SUB-Q Q12HR [facility] Last Admin: 11/29/16 11:42 Dose: 50 mg Famotidine (Pepcid) 20 mg PO BID [facility] Last Admin: 11/29/16 11:44 Dose: 20 mg Clindamycin HCl (Cleocin 600 Mg/50 Ml) 600 mg in 50 mls @ 100 mls/hr IV Q8H [facility] PRN Reason: Protocol Last Admin: 11/29/16 11:41 Dose: 100 mls/hr Sodium Chloride (Nacl 0.9% 1000 Ml) 1,000 mls @ 50 mls/hr IV DIRECT [facility] Last Admin: 11/28/16 23:17 Dose: 50 mls/hr Dextrose/Sodium Chloride (D5/0.45ns) 1,000 mls @ 75 mls/hr IV DIRECT [facility] Last Admin: 11/29/16 11:41 Dose: 75 mls/hr Metoprolol Tartrate (Lopressor) 12.5 mg PO BID [facility] Last Admin: 11/29/16 11:42 Dose: 12.5 mg Simple Syrup (Simple Syrup) 15 ml FEEDTUBE PRN PRN PRN Reason: Hypoglycemia Simple Syrup (Simple Syrup) 30 ml FEEDTUBE PRN PRN PRN Reason: Hypoglycemia Sodium Bicarbonate (Sodium Bicarbonate) 325 mg FEEDTUBE PRN PRN PRN Reason: For Clogged Feeding Tube Objective Vital Signs - 12hr 11/29/16 11/29/16 11/29/16 03:00 04:44 08:16 Temperature 97.7 F Pulse Rate 70 69 Pulse Rate [ 72 Anterior Bilateral Throughout] Respiratory 18 Rate Respiratory 18 Rate [Anterior Bilateral Throughout] Blood Pressure 102/58 O2 Sat by Pulse 99 96 Oximetry 11/29/16 11/29/16 11/29/16 08:26 08:48 11:42 Temperature 97.6 F Pulse Rate 72 76 Pulse Rate [ 67 Anterior Bilateral Throughout] Respiratory 20 Rate Respiratory 18 Rate [Anterior Bilateral Throughout] Blood Pressure 100/61 128/78 O2 Sat by Pulse 97 Oximetry 11/29/16 11/29/16 12:00 12:46 Temperature 97.2 F L Pulse Rate 75 Pulse Rate [ Anterior Bilateral Throughout] Respiratory 18 Rate Respiratory Rate [Anterior Bilateral Throughout] Blood Pressure 90/53 O2 Sat by Pulse 96 97 Oximetry Constitutional: no acute distress, other (cachectic) Eyes: non-icteric ENT: oropharynx moist Neck: supple Effort: normal Ascultation: Bilateral: rhonchi (better) Cardiovascular: regular rate and rhythm (no mrg) Gastrointestinal: normoactive bowel sounds, soft, non-tender, non-distended Integumentary: normal Extremities: no cyanosis, cool, edema (trace) Neurologic: non-focal exam (eyes open, nonverbal currently) Psychiatric: other (unable to assess) CBC and BMP: 11/28/16 06:03 11/29/16 04:15 ABG, PT/INR, D-dimer: ABG POC ABG pH 7.477 (7.35-7.45) H 11/27/16 17:20 POC ABG pCO2 40.9 (35-45) 11/27/16 17:20 POC ABG pO2 79 (80-105) L 11/27/16 17:20 POC ABG HCO3 30.3 11/27/16 17:20 POC ABG Total CO2 32 11/27/16 17:20 POC ABG O2 Sat 96 11/27/16 17:20 PT/INR, D-dimer PT 14.8 Sec. (12.2-14.9) 11/25/16 16:36 INR 1.10 (0.87-1.13) 11/25/16 16:36 D-Dimer 4483.33 ng/mlDDU (0-234) H 11/25/16 01:13 Abnormal lab findings: Abnormal Labs 11/25/16 11/25/16 11/25/16 07:13 11:45 16:36 WBC RBC Hgb Hct MCHC RDW Seg Neuts % (Manual) Lymphocytes % (Manual) Seg Neutrophils # Man Lymphocytes # (Manual) POC ABG pH POC ABG pO2 Sodium Chloride BUN Creatinine Glucose POC Glucose Ammonia 21.0 L Troponin T 0.124 H* Albumin Ur Specific [place] > 1.059 H Urine WBC (Auto) 7.0 H 11/25/16 11/26/16 11/26/16 18:03 06:58 06:58 WBC 11.6 H RBC 3.33 L Hgb 9.5 L Hct 29.7 L MCHC RDW 15.3 H Seg Neuts % (Manual) 89.0 H Lymphocytes % (Manual) 3.0 L Seg Neutrophils # Man 10.3 H Lymphocytes # (Manual) 0.3 L POC ABG pH POC ABG pO2 Sodium Chloride BUN 25 H Creatinine 0.7 L Glucose 114 H POC Glucose 111 H Ammonia Troponin T Albumin Ur Specific [place] Urine WBC (Auto) 11/26/16 11/26/16 11/26/16 07:49 11:23 16:36 WBC RBC Hgb Hct MCHC RDW Seg Neuts % (Manual) Lymphocytes % (Manual) Seg Neutrophils # Man Lymphocytes # (Manual) POC ABG pH POC ABG pO2 Sodium Chloride BUN Creatinine Glucose POC Glucose 141 H 151 H 132 H Ammonia Troponin T Albumin Ur Specific [place] Urine WBC (Auto) 11/27/16 11/27/16 11/27/16 07:36 08:33 14:09 WBC RBC Hgb Hct MCHC RDW Seg Neuts % (Manual) Lymphocytes % (Manual) Seg Neutrophils # Man Lymphocytes # (Manual) POC ABG pH POC ABG pO2 Sodium Chloride BUN Creatinine Glucose POC Glucose 156 H 176 H 156 H Ammonia Troponin T Albumin Ur Specific [place] Urine WBC (Auto) 11/27/16 11/27/16 11/28/16 17:10 17:20 06:03 WBC 12.6 H RBC 3.08 L Hgb 8.7 L Hct 27.8 L MCHC 31 L RDW Seg Neuts % (Manual) Lymphocytes % (Manual) 1.0 L Seg Neutrophils # Man 12.5 H Lymphocytes # (Manual) 0.1 L POC ABG pH 7.477 H POC ABG pO2 79 L Sodium Chloride BUN Creatinine Glucose POC Glucose 168 H Ammonia Troponin T Albumin Ur Specific [place] Urine WBC (Auto) 11/28/16 11/28/16 11/28/16 06:03 07:25 11:13 WBC RBC Hgb Hct MCHC RDW Seg Neuts % (Manual) Lymphocytes % (Manual) Seg Neutrophils # Man Lymphocytes # (Manual) POC ABG pH POC ABG pO2 Sodium 147 H Chloride 110.4 H BUN 24 H Creatinine 0.5 L Glucose 157 H POC Glucose 173 H 185 H Ammonia Troponin T Albumin 2.7 L Ur Specific [place] Urine WBC (Auto) 11/29/16 04:15 WBC RBC Hgb Hct MCHC RDW Seg Neuts % (Manual) Lymphocytes % (Manual) Seg Neutrophils # Man Lymphocytes # (Manual) POC ABG pH POC ABG pO2 Sodium 149 H Chloride 112.0 H BUN 22 H Creatinine 0.5 L Glucose POC Glucose Ammonia Troponin T Albumin Ur Specific [place] Urine WBC (Auto) Chest x-ray: report reviewed, image reviewed
[2016-11-29] MEDS ORDERED: SODIUM BICARBONATE FEEDTUBE PRN ×2 (14:50→14:52)
[2016-11-29] MEDS ORDERED: SIMPLE SYRUP FEEDTUBE PRN ×4 (14:50→14:52)
[2016-11-29] MEDS ORDERED: PANCREAZE DR 10,500 UNIT FEEDTUBE PRN ×2 (14:50→14:52)
--- NOTE | 2016-11-29 16:10 | Gastroenterology Progress Note ---
Assessment and Plan 1. Weight loss 2. Dementa 3. N STEMI - S/P PEG placement, benign. - TF per protocol with nutrition, tolerating well. - No further GI intervention needed as inpatient. Subjective Date of service: 11/29/16 Principal diagnosis: NSTEMI Interval history: Patient appears in no acute distress. Objective - Constitutional Vitals: Temp Pulse Resp BP Pulse Ox 97.2 F L 69 18 90/53 97 11/29/16 12:46 11/29/16 14:04 11/29/16 14:04 11/29/16 12:46 11/29/16 12:46 General appearance: no acute distress, other (nonverbal, eyes closed) - Respiratory Respiratory: bilateral: diminished - Cardiovascular Rhythm: regular - Gastrointestinal General gastrointestinal: Present: soft, non-tender, other (PEG site with minimal old drainage noted, no active bleeding. ) - Integumentary Integumentary: Present: warm, dry, pale - Neurologic Neurological: other (eyes closed) - Labs CBC & Chem 7: 11/28/16 06:03 11/29/16 04:15 Labs: Laboratory Results - last 24 hr 11/28/16 11/28/16 11/29/16 16:00 21:34 04:15 Sodium 149 H Potassium 3.9 Chloride 112.0 H Carbon Dioxide 26 Anion Gap 15 BUN 22 H Creatinine 0.5 L Estimated GFR > 60 BUN/Creatinine Ratio 44.00 Glucose 93 POC Glucose 89 Calcium 8.4 Fluid Type Paracentesis Fluid Color Yellow Fluid Appearance Clear Fluid pH 7.468 Fluid WBC 11 Fluid RBC 356 Fluid Seg Neutrophils 60.0 Fluid Lymphocytes 30.0 Fluid Reactive Lymphs 0 Fluid Monocytes 10.0 Fluid Eosinophils 0 Fluid Basophils 0 Fluid Comment Diff performed 11/29/16 11/29/16 07:50 11:54 Sodium Potassium Chloride Carbon Dioxide Anion Gap BUN Creatinine Estimated GFR BUN/Creatinine Ratio Glucose POC Glucose 105 93 Calcium Fluid Type Fluid Color Fluid Appearance Fluid pH Fluid WBC Fluid RBC Fluid Seg Neutrophils Fluid Lymphocytes Fluid Reactive Lymphs Fluid Monocytes Fluid Eosinophils Fluid Basophils Fluid Comment
--- NOTE | 2016-11-29 16:49 | Progress Note ---
Assessment and Plan Acute respiratory failure with hypoxia. Patient oxygen saturation improved with BiPAP 35 , currently off BiPAP, SPO2 > 95 %. likely from aspiration No acute respiratory distress noted. 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 will get hepatitis pannel s/p paracenthesis on 11/28/16, removed 3.6L fluid Eleavted D-dimer/ LLE DVT CTA revealed no pulmonary embolism LLE DVT on venous Doppler will continue on lovenox therapeutic dose q12h will change to oral coumadin Severe protein- calorie Malnutrition Swallow and speech evaluation was done and he was recommended to have PEG tube for high risk for aspiration GI consulted for possible PEG tube placement s/p PEG placement on 11/28/16, started on TF hypernatremia - cont iv d5 1/2 NS h/o prostate cancer - ct abdomen/pelvis showed no obvious finding DVT prophylaxis lovenox Code status DNR Subjective Date of service: 11/29/16 Principal diagnosis: NSTEMI Interval history: Patient seen and examined. s/p PEG and paracenthesis on 12/29/16 No acute event overnight noted by the RN. Discussed plan of care with pt's RN at bedside. started on TF today Objective - Exam Narrative Exam: General: Other (lethargic, nonverbal) HEENT: Positive: PERRL, Normocephaly, Mucus Membranes Moist Neck: Positive: neck supple, trachea midline Cardiac: Positive: Reg Rate and Rhythm, S1/S2 Lungs: Positive: Rhonchi Neuro: Positive: Other (lethargic, withdrawn, nonverbal) Abdomen: Positive: Unremarkable, Soft, Active Bowel Sounds. PEG on place Skin: Positive: Clear. Negative: Rash, Wound Musculoskeletal: No Pain, Normal Range of Motion Extremities: Present: edema (trace BLE ) - Constitutional Vitals: Vital Signs - 12hr 11/29/16 11/29/1617 08:16 08:26 08:48 Temperature 97.6 F Pulse Rate 72 Pulse Rate [ 72 67 Anterior Bilateral Throughout] Respiratory 20 Rate Respiratory 18 18 Rate [Anterior Bilateral Throughout] Blood Pressure 100/61 O2 Sat by Pulse 96 97 Oximetry 11/29/16 11/29/16 11/29/16 11:42 12:00 12:46 Temperature 97.2 F L Pulse Rate 76 75 Pulse Rate [ Anterior Bilateral Throughout] Respiratory 18 Rate Respiratory Rate [Anterior Bilateral Throughout] Blood Pressure 128/78 90/53 O2 Sat by Pulse 96 97 Oximetry 11/29/16 11/29/16 13:54 14:04 Temperature Pulse Rate Pulse Rate [ 72 69 Anterior Bilateral Throughout] Respiratory Rate Respiratory 18 18 Rate [Anterior Bilateral Throughout] Blood Pressure O2 Sat by Pulse Oximetry - Labs CBC & Chem 7: 11/28/16 06:03 11/29/16 04:15 Labs: Abnormal lab results 11/29/16 Range/Units 04:15 Sodium 149 H (137-145) mmol/L Chloride 112.0 H (98-107) mmol/L BUN 22 H (9-20) mg/dL Creatinine 0.5 L (0.8-1.5) mg/dL
[2016-11-30] MEDS: CLEOCIN 600 MG/50 mL 600 MG/50 ML BAG IV SCH ×3 (01:26→18:17)
[2016-11-30] MEDS: D5/0.45NS 1,000 ML IV SCH (01:27)
[2016-11-30] MEDS: DUONEB *Not for PRN Use IH SCH ×3 (08:06→21:47)
[2016-11-30] MEDS: LOVENOX SUB-Q SCH ×2 (10:42→22:10)
[2016-11-30] MEDS: COLACE PO SCH (10:42)
[2016-11-30] MEDS: LOPRESSOR PO SCH ×2 (10:43→22:10)
[2016-11-30] MEDS: PEPCID PO SCH ×2 (10:43→22:15)
--- NOTE | 2016-11-30 10:57 | Progress Note ---
Assessment and Plan Dementia OP dysphagia NSTEMI. V/S adequate HFpEF,diastolic Pleural effusions/ascites, suggestive of either CHF or liver disease Acute respiratory failure, hypoxia Cachexia.PEG support started COPD exac/emphysema Probable also mild bronchiectasis in lower lobes Acute DVT LLE Pulm HTN Ascites Rec Continue nutritional support aspiration precautions NSTEMI f/u per cards recommedations Anticoagulation x DVT Complete ABX Subjective Date of service: 11/30/16 Principal diagnosis: NSTEMI Interval history: asleep,not oriented Objective Vital Signs - 12hr 11/30/16 11/30/16 11/30/16 01:08 03:00 04:56 Temperature 94.2 F L 94.5 F L Pulse Rate 78 72 72 Pulse Rate [ Anterior Bilateral Throughout] Respiratory 12 12 Rate Respiratory Rate [Anterior Bilateral Throughout] Blood Pressure 101/57 104/63 O2 Sat by Pulse 95 99 Oximetry 11/30/16 11/30/16 08:00 08:29 Temperature 97.5 F L Pulse Rate 78 Pulse Rate [ 78 Anterior Bilateral Throughout] Respiratory 24 Rate Respiratory 18 Rate [Anterior Bilateral Throughout] Blood Pressure 88/56 O2 Sat by Pulse 98 Oximetry Constitutional: no acute distress, other (cachectic) Eyes: non-icteric ENT: oropharynx moist Neck: supple Effort: normal Ascultation: Bilateral: clear, diminished breath sounds Cardiovascular: regular rate and rhythm Gastrointestinal: normoactive bowel sounds, soft, non-tender, non-distended, other (PEG in place) Integumentary: normal Extremities: no cyanosis, cool Neurologic: non-focal exam (eyes open, nonverbal currently) Psychiatric: other (unable to assess) CBC and BMP: 11/28/16 06:03 11/29/16 04:15 ABG, PT/INR, D-dimer: ABG POC ABG pH 7.477 (7.35-7.45) H 11/27/16 17:20 POC ABG pCO2 40.9 (35-45) 11/27/16 17:20 POC ABG pO2 79 (80-105) L 11/27/16 17:20 POC ABG HCO3 30.3 11/27/16 17:20 POC ABG Total CO2 32 11/27/16 17:20 POC ABG O2 Sat 96 11/27/16 17:20 PT/INR, D-dimer PT 14.8 Sec. (12.2-14.9) 11/25/16 16:36 INR 1.10 (0.87-1.13) 11/25/16 16:36 D-Dimer 4483.33 ng/mlDDU (0-234) H 11/25/16 01:13 Abnormal lab findings: Abnormal Labs 11/25/16 11/25/16 11/25/16 07:13 11:45 16:36 WBC RBC Hgb Hct MCHC RDW Seg Neuts % (Manual) Lymphocytes % (Manual) Seg Neutrophils # Man Lymphocytes # (Manual) POC ABG pH POC ABG pO2 Sodium Chloride BUN Creatinine Glucose POC Glucose Ammonia 21.0 L Troponin T 0.124 H* Albumin Ur Specific [place] > 1.059 H Urine WBC (Auto) 7.0 H 11/25/16 11/26/16 11/26/16 18:03 06:58 06:58 WBC 11.6 H RBC 3.33 L Hgb 9.5 L Hct 29.7 L MCHC RDW 15.3 H Seg Neuts % (Manual) 89.0 H Lymphocytes % (Manual) 3.0 L Seg Neutrophils # Man 10.3 H Lymphocytes # (Manual) 0.3 L POC ABG pH POC ABG pO2 Sodium Chloride BUN 25 H Creatinine 0.7 L Glucose 114 H POC Glucose 111 H Ammonia Troponin T Albumin Ur Specific [place] Urine WBC (Auto) 11/26/16 11/26/16 11/26/16 07:49 11:23 16:36 WBC RBC Hgb Hct MCHC RDW Seg Neuts % (Manual) Lymphocytes % (Manual) Seg Neutrophils # Man Lymphocytes # (Manual) POC ABG pH POC ABG pO2 Sodium Chloride BUN Creatinine Glucose POC Glucose 141 H 151 H 132 H Ammonia Troponin T Albumin Ur Specific [place] Urine WBC (Auto) 11/27/16 11/27/16 11/27/16 07:36 08:33 14:09 WBC RBC Hgb Hct MCHC RDW Seg Neuts % (Manual) Lymphocytes % (Manual) Seg Neutrophils # Man Lymphocytes # (Manual) POC ABG pH POC ABG pO2 Sodium Chloride BUN Creatinine Glucose POC Glucose 156 H 176 H 156 H Ammonia Troponin T Albumin Ur Specific [place] Urine WBC (Auto) 11/27/16 11/27/16 11/28/16 17:10 17:20 06:03 WBC 12.6 H RBC 3.08 L Hgb 8.7 L Hct 27.8 L MCHC 31 L RDW Seg Neuts % (Manual) Lymphocytes % (Manual) 1.0 L Seg Neutrophils # Man 12.5 H Lymphocytes # (Manual) 0.1 L POC ABG pH 7.477 H POC ABG pO2 79 L Sodium Chloride BUN Creatinine Glucose POC Glucose 168 H Ammonia Troponin T Albumin Ur Specific [place] Urine WBC (Auto) 11/28/16 11/28/16 11/28/16 06:03 07:25 11:13 WBC RBC Hgb Hct MCHC RDW Seg Neuts % (Manual) Lymphocytes % (Manual) Seg Neutrophils # Man Lymphocytes # (Manual) POC ABG pH POC ABG pO2 Sodium 147 H Chloride 110.4 H BUN 24 H Creatinine 0.5 L Glucose 157 H POC Glucose 173 H 185 H Ammonia Troponin T Albumin 2.7 L Ur Specific [place] Urine WBC (Auto) 11/29/16 11/29/16 11/30/16 04:15 16:25 00:48 WBC RBC Hgb Hct MCHC RDW Seg Neuts % (Manual) Lymphocytes % (Manual) Seg Neutrophils # Man Lymphocytes # (Manual) POC ABG pH POC ABG pO2 Sodium 149 H Chloride 112.0 H BUN 22 H Creatinine 0.5 L Glucose POC Glucose 121 H 250 H Ammonia Troponin T Albumin Ur Specific [place] Urine WBC (Auto) 11/30/16 05:11 WBC RBC Hgb Hct MCHC RDW Seg Neuts % (Manual) Lymphocytes % (Manual) Seg Neutrophils # Man Lymphocytes # (Manual) POC ABG pH POC ABG pO2 Sodium Chloride BUN Creatinine Glucose POC Glucose 210 H Ammonia Troponin T Albumin Ur Specific [place] Urine WBC (Auto)
[2016-11-30] MEDS ORDERED: SIMPLE SYRUP FEEDTUBE PRN ×4 (14:27→14:29)
[2016-11-30] MEDS ORDERED: SODIUM BICARBONATE FEEDTUBE PRN ×2 (14:27→14:29)
[2016-11-30] MEDS ORDERED: PANCREAZE DR 10,500 UNIT FEEDTUBE PRN ×2 (14:27→14:29)
--- NOTE | 2016-11-30 14:52 | Progress Note ---
Assessment and Plan Acute respiratory failure with hypoxia. Patient oxygen saturation improved with BiPAP 35 , currently off BiPAP, SPO2 > 95 %. likely from aspiration No acute respiratory distress noted. 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 will get hepatitis pannel s/p paracenthesis on 11/28/16, removed 3.6L fluid Eleavted D-dimer/ LLE DVT CTA revealed no pulmonary embolism LLE DVT on venous Doppler will continue on lovenox therapeutic dose q12h will change to oral anticoagulation when tolerates TF Severe protein- calorie Malnutrition Swallow and speech evaluation was done and he was recommended to have PEG tube for high risk for aspiration GI consulted for possible PEG tube placement s/p PEG placement on 11/28/16, started on TF - will place on reglan as having high volume residual hypernatremia - cont iv d5 1/2 NS h/o prostate cancer - ct abdomen/pelvis showed no obvious finding DVT prophylaxis lovenox Code status DNR Subjective Date of service: 11/30/16 Principal diagnosis: NSTEMI Interval history: Patient seen and examined. s/p PEG and paracenthesis on 12/29/16 No acute event overnight noted by the RN. started on TF but with volume residual Objective - Exam Narrative Exam: General: Other (lethargic, nonverbal) HEENT: Positive: PERRL, Normocephaly, Mucus Membranes Moist Neck: Positive: neck supple, trachea midline Cardiac: Positive: Reg Rate and Rhythm, S1/S2 Lungs: Positive: Rhonchi Neuro: Positive: Other (lethargic, withdrawn, nonverbal) Abdomen: Positive: Unremarkable, Soft, Active Bowel Sounds. PEG on place Skin: Positive: Clear. Negative: Rash, Wound Musculoskeletal: No Pain, Normal Range of Motion Extremities: Present: edema (trace BLE ) - Constitutional Vitals: Vital Signs - 12hr 11/30/16 11/30/16 11/30/16 03:00 04:56 08:00 Temperature 94.5 F L Pulse Rate 72 72 Pulse Rate [ 78 Anterior Bilateral Throughout] Respiratory 12 Rate Respiratory 18 Rate [Anterior Bilateral Throughout] Blood Pressure 104/63 O2 Sat by Pulse 99 Oximetry 11/30/16 11/30/16 11/30/16 08:29 10:00 11:00 Temperature 97.5 F L Pulse Rate 78 79 Pulse Rate [ Anterior Bilateral Throughout] Respiratory 24 Rate Respiratory Rate [Anterior Bilateral Throughout] Blood Pressure 88/56 O2 Sat by Pulse 98 98 Oximetry 11/30/16 12:18 Temperature 98.6 F Pulse Rate 85 Pulse Rate [ Anterior Bilateral Throughout] Respiratory 22 Rate Respiratory Rate [Anterior Bilateral Throughout] Blood Pressure 105/84 O2 Sat by Pulse 97 Oximetry - Labs CBC & Chem 7: 12/01/16 09:18 12/01/16 09:18 Labs: Abnormal lab results 11/29/16 11/30/16 11/30/16 Range/Units 16:25 00:48 05:11 POC Glucose 121 H 250 H 210 H (70-105) 11/30/16 Range/Units 11:25 POC Glucose 336 H (70-105)
[2016-11-30 15:55] LABS: Hematocrit 26.5 % (35.5-45.6); Hemoglobin 8.4 gm/dl (11.8-15.2); Mean Corpuscular HGB Conc 32 % (32-34); Mean Corpuscular Hemoglobin 29 pg (28-32); Mean Corpuscular Volume 90 fl (84-94); Platelet Count 254 K/mm3 (140-440); Red Blood Count 2.93 M/mm3 (3.65-5.03); Red Cell Distribution Width 14.9 % (13.2-15.2); White Blood Count 9.5 K/mm3 (4.5-11.0)
[2016-11-30 16:17] LABS: Anion Gap 14 mmol/L; Blood Urea Nitrogen 18 mg/dL (9-20); Calcium 7.8 mg/dL (8.4-10.2); Carbon Dioxide 27 mmol/L (22-30); Chloride 106.7 mmol/L (98-107); Glucose 210 mg/dL (75-100); Potassium 3.5 mmol/L (3.6-5.0); Sodium 144 mmol/L (137-145)
[2016-12-01] MEDS: CLEOCIN 600 MG/50 mL 600 MG/50 ML BAG IV SCH ×2 (02:33→10:29)
[2016-12-01] MEDS: DUONEB *Not for PRN Use IH SCH ×3 (08:18→21:53)
[2016-12-01] MEDS: PEPCID PO SCH ×2 (09:23→22:15)
[2016-12-01] MEDS: COLACE PO SCH (09:23)
[2016-12-01] MEDS: LOVENOX SUB-Q SCH (09:23)
[2016-12-01 09:35] LABS: Basophils % (Auto) 0.1 % (0.0-1.8); Eosinophils % (Auto) 0.8 % (0.0-4.3); Hematocrit 30.2 % (35.5-45.6); Hemoglobin 9.6 gm/dl (11.8-15.2); Mean Corpuscular HGB Conc 32 % (32-34); Mean Corpuscular Hemoglobin 29 pg (28-32); Mean Corpuscular Volume 90 fl (84-94); Platelet Count 288 K/mm3 (140-440); Red Blood Count 3.35 M/mm3 (3.65-5.03); Red Cell Distribution Width 15.1 % (13.2-15.2); White Blood Count 10.4 K/mm3 (4.5-11.0)
[2016-12-01 09:48] LABS: Anion Gap 13 mmol/L; Blood Urea Nitrogen 19 mg/dL (9-20); Calcium 7.8 mg/dL (8.4-10.2); Carbon Dioxide 29 mmol/L (22-30); Chloride 103.6 mmol/L (98-107); Glucose 149 mg/dL (75-100); Potassium 3.8 mmol/L (3.6-5.0); Sodium 142 mmol/L (137-145)
[2016-12-01] MEDS: LOPRESSOR PO SCH ×2 (10:29→22:15)
--- NOTE | 2016-12-01 12:53 | Progress Note ---
Assessment and Plan Dementia OP dysphagia NSTEMI. V/S adequate HFpEF,diastolic Pleural effusions/ascites, suggestive of either CHF or liver disease.No additional chest congestion,no distress/improved Acute respiratory failure, hypoxia,Controlled Cachexia.PEG support started COPD exac/emphysema.Controlled Probable mild bronchiectasis lower lobes Acute DVT LLE Pulm HTN Ascites Rec Continue nutritional support Aspiration precautions NSTEMI f/u per cards recommedations Anticoagulation x DVT Complete ABX Subjective Date of service: 12/01/16 Principal diagnosis: NSTEMI Interval history: Alert but non verbal.No family Objective Vital Signs - 12hr 12/01/16 12/01/16 12/01/16 03:00 04:00 08:30 Temperature 97.4 F L 98.2 F Pulse Rate 82 74 88 Respiratory 18 20 Rate Blood Pressure 104/72 106/79 O2 Sat by Pulse 98 99 Oximetry Constitutional: no acute distress, alert Eyes: non-icteric ENT: oropharynx moist Neck: supple Effort: normal Ascultation: Bilateral: clear, diminished breath sounds Cardiovascular: regular rate and rhythm Gastrointestinal: normoactive bowel sounds, soft, non-tender, non-distended, other (PEG in place) Integumentary: normal Extremities: no cyanosis, cool Neurologic: non-focal exam (eyes open, nonverbal currently) Psychiatric: other (unable to assess) CBC and BMP: 12/01/16 09:18 12/01/16 09:18 ABG, PT/INR, D-dimer: ABG POC ABG pH 7.477 (7.35-7.45) H 11/27/16 17:20 POC ABG pCO2 40.9 (35-45) 11/27/16 17:20 POC ABG pO2 79 (80-105) L 11/27/16 17:20 POC ABG HCO3 30.3 11/27/16 17:20 POC ABG Total CO2 32 11/27/16 17:20 POC ABG O2 Sat 96 11/27/16 17:20 PT/INR, D-dimer PT 14.8 Sec. (12.2-14.9) 11/25/16 16:36 INR 1.10 (0.87-1.13) 11/25/16 16:36 D-Dimer 4483.33 ng/mlDDU (0-234) H 11/25/16 01:13 Abnormal lab findings: Abnormal Labs 11/25/16 11/25/16 11/25/16 07:13 11:45 16:36 WBC RBC Hgb Hct MCHC RDW Lymph % (Auto) Lymph # Seg Neutrophils % Seg Neuts % (Manual) Lymphocytes % (Manual) Seg Neutrophils # Seg Neutrophils # Man Lymphocytes # (Manual) POC ABG pH POC ABG pO2 Sodium Potassium Chloride BUN Creatinine Glucose POC Glucose Calcium Ammonia 21.0 L Troponin T 0.124 H* Albumin Ur Specific [place] > 1.059 H Urine WBC (Auto) 7.0 H 11/25/16 11/26/16 11/26/16 18:03 06:58 06:58 WBC 11.6 H RBC 3.33 L Hgb 9.5 L Hct 29.7 L MCHC RDW 15.3 H Lymph % (Auto) Lymph # Seg Neutrophils % Seg Neuts % (Manual) 89.0 H Lymphocytes % (Manual) 3.0 L Seg Neutrophils # Seg Neutrophils # Man 10.3 H Lymphocytes # (Manual) 0.3 L POC ABG pH POC ABG pO2 Sodium Potassium Chloride BUN 25 H Creatinine 0.7 L Glucose 114 H POC Glucose 111 H Calcium Ammonia Troponin T Albumin Ur Specific [place] Urine WBC (Auto) 11/26/16 11/26/16 11/26/16 07:49 11:23 16:36 WBC RBC Hgb Hct MCHC RDW Lymph % (Auto) Lymph # Seg Neutrophils % Seg Neuts % (Manual) Lymphocytes % (Manual) Seg Neutrophils # Seg Neutrophils # Man Lymphocytes # (Manual) POC ABG pH POC ABG pO2 Sodium Potassium Chloride BUN Creatinine Glucose POC Glucose 141 H 151 H 132 H Calcium Ammonia Troponin T Albumin Ur Specific [place] Urine WBC (Auto) 11/27/16 11/27/16 11/27/16 07:36 08:33 14:09 WBC RBC Hgb Hct MCHC RDW Lymph % (Auto) Lymph # Seg Neutrophils % Seg Neuts % (Manual) Lymphocytes % (Manual) Seg Neutrophils # Seg Neutrophils # Man Lymphocytes # (Manual) POC ABG pH POC ABG pO2 Sodium Potassium Chloride BUN Creatinine Glucose POC Glucose 156 H 176 H 156 H Calcium Ammonia Troponin T Albumin Ur Specific [place] Urine WBC (Auto) 11/27/16 11/27/16 11/28/16 17:10 17:20 06:03 WBC 12.6 H RBC 3.08 L Hgb 8.7 L Hct 27.8 L MCHC 31 L RDW Lymph % (Auto) Lymph # Seg Neutrophils % Seg Neuts % (Manual) Lymphocytes % (Manual) 1.0 L Seg Neutrophils # Seg Neutrophils # Man 12.5 H Lymphocytes # (Manual) 0.1 L POC ABG pH 7.477 H POC ABG pO2 79 L Sodium Potassium Chloride BUN Creatinine Glucose POC Glucose 168 H Calcium Ammonia Troponin T Albumin Ur Specific [place] Urine WBC (Auto) 11/28/16 11/28/16 11/28/16 06:03 07:25 11:13 WBC RBC Hgb Hct MCHC RDW Lymph % (Auto) Lymph # Seg Neutrophils % Seg Neuts % (Manual) Lymphocytes % (Manual) Seg Neutrophils # Seg Neutrophils # Man Lymphocytes # (Manual) POC ABG pH POC ABG pO2 Sodium 147 H Potassium Chloride 110.4 H BUN 24 H Creatinine 0.5 L Glucose 157 H POC Glucose 173 H 185 H Calcium Ammonia Troponin T Albumin 2.7 L Ur Specific [place] Urine WBC (Auto) 11/29/16 11/29/16 11/30/16 04:15 16:25 00:48 WBC RBC Hgb Hct MCHC RDW Lymph % (Auto) Lymph # Seg Neutrophils % Seg Neuts % (Manual) Lymphocytes % (Manual) Seg Neutrophils # Seg Neutrophils # Man Lymphocytes # (Manual) POC ABG pH POC ABG pO2 Sodium 149 H Potassium Chloride 112.0 H BUN 22 H Creatinine 0.5 L Glucose POC Glucose 121 H 250 H Calcium Ammonia Troponin T Albumin Ur Specific [place] Urine WBC (Auto) 11/30/16 11/30/16 11/30/16 05:11 11:25 15:25 WBC RBC 2.93 L Hgb 8.4 L Hct 26.5 L MCHC RDW Lymph % (Auto) Lymph # Seg Neutrophils % Seg Neuts % (Manual) Lymphocytes % (Manual) Seg Neutrophils # Seg Neutrophils # Man Lymphocytes # (Manual) POC ABG pH POC ABG pO2 Sodium Potassium Chloride BUN Creatinine Glucose POC Glucose 210 H 336 H Calcium Ammonia Troponin T Albumin Ur Specific [place] Urine WBC (Auto) 11/30/16 11/30/16 12/01/16 15:25 17:46 01:02 WBC RBC Hgb Hct MCHC RDW Lymph % (Auto) Lymph # Seg Neutrophils % Seg Neuts % (Manual) Lymphocytes % (Manual) Seg Neutrophils # Seg Neutrophils # Man Lymphocytes # (Manual) POC ABG pH POC ABG pO2 Sodium Potassium 3.5 L Chloride BUN Creatinine 0.5 L Glucose 210 H POC Glucose 177 H 117 H Calcium 7.8 L Ammonia Troponin T Albumin Ur Specific [place] Urine WBC (Auto) 12/01/16 12/01/16 12/01/16 06:21 09:18 09:18 WBC RBC 3.35 L Hgb 9.6 L Hct 30.2 L MCHC RDW Lymph % (Auto) 7.4 L Lymph # 0.8 L Seg Neutrophils % 87.6 H Seg Neuts % (Manual) Lymphocytes % (Manual) Seg Neutrophils # 9.1 H Seg Neutrophils # Man Lymphocytes # (Manual) POC ABG pH POC ABG pO2 Sodium Potassium Chloride BUN Creatinine 0.5 L Glucose 149 H POC Glucose 131 H Calcium 7.8 L Ammonia Troponin T Albumin Ur Specific [place] Urine WBC (Auto)
--- NOTE | 2016-12-01 14:56 | Progress Note ---
Assessment and Plan Acute respiratory failure with hypoxia. Patient oxygen saturation improved with BiPAP 35 , currently off BiPAP, SPO2 > 95 %. likely from aspiration No acute respiratory distress noted. Aggressive nebulizers therapy Oxygen supplement Supportive care Pulmonology following Acute metabolic encephalopathy Treat underline causes likely from dementia and respiratory failure more lathergic today Elevated troponin monitor at Telemetry for continues pvc monitor EKG Normal sinus rhythm with 82 bpm Started on Asprin, statin, beta kostas Cardiology Evaluated and recommended medical Mx COPD exacerbation Duoneb every 6 hours cont on Solumedrol every 8 hours Volume overload/ ascites/Elevated BNP etiology unknown, likely from malnutrition vs liver pathology vs CHF Closely monitor renal function and electrolytes CT abdomen pelvis showed ascitis and 2d echo showed normal EF liver function normal. will get hepatitis pannel s/p paracenthesis on 11/28/16, removed 3.6L fluid Eleavted D-dimer/ LLE DVT CTA revealed no pulmonary embolism LLE DVT on venous Doppler placed on lovenox therapeutic dose q12h will change to ELIQUIS today Severe protein- calorie Malnutrition Swallow and speech evaluation was done and he was recommended to have PEG tube for high risk for aspiration GI consulted for possible PEG tube placement s/p PEG placement on 11/28/16, started on TF - placed on reglan as he was having high volume residual hypernatremia - cont iv d5 1/2 NS h/o prostate cancer - ct abdomen/pelvis showed no obvious finding DVT prophylaxis lovenox Code status DNR Subjective Date of service: 12/01/16 Principal diagnosis: NSTEMI Interval history: Patient seen and examined. s/p PEG and paracenthesis on 12/29/16 No acute event overnight noted by the RN. tolerating TF Objective - Exam Narrative Exam: General: Other (lethargic, nonverbal) HEENT: Positive: PERRL, Normocephaly, Mucus Membranes Moist Neck: Positive: neck supple, trachea midline Cardiac: Positive: Reg Rate and Rhythm, S1/S2 Lungs: Positive: Rhonchi Neuro: Positive: Other (lethargic, withdrawn, nonverbal) Abdomen: Positive: Unremarkable, Soft, Active Bowel Sounds. PEG on place Skin: Positive: Clear. Negative: Rash, Wound Musculoskeletal: No Pain, Normal Range of Motion Extremities: Present: edema (trace BLE ) - Constitutional Vitals: Vital Signs - 12hr 12/01/16 12/01/16 12/01/16 03:00 04:00 08:18 Temperature 97.4 F L Pulse Rate 82 74 Pulse Rate [ 82 Anterior Bilateral Throughout] Respiratory 18 Rate Respiratory 18 Rate [Anterior Bilateral Throughout] Blood Pressure 104/72 O2 Sat by Pulse 98 100 Oximetry 12/01/16 12/01/16 12/01/16 08:28 08:30 11:00 Temperature 98.2 F Pulse Rate 88 78 Pulse Rate [ 85 Anterior Bilateral Throughout] Respiratory 20 Rate Respiratory 18 Rate [Anterior Bilateral Throughout] Blood Pressure 106/79 O2 Sat by Pulse 99 Oximetry 12/01/16 12/01/16 12/01/16 12:15 13:08 13:18 Temperature 98.3 F Pulse Rate 94 H Pulse Rate [ 83 87 Anterior Bilateral Throughout] Respiratory 20 Rate Respiratory 18 18 Rate [Anterior Bilateral Throughout] Blood Pressure 103/76 O2 Sat by Pulse 98 Oximetry - Labs CBC & Chem 7: 12/01/16 09:18 12/01/16 09:18 Labs: Abnormal lab results 11/30/16 11/30/16 11/30/16 Range/Units 15:25 15:25 17:46 RBC 2.93 L (3.65-5.03) M/mm3 Hgb 8.4 L (11.8-15.2) gm/dl Hct 26.5 L (35.5-45.6) % Lymph % (Auto) (13.4-35.0) % Lymph # (1.2-5.4) K/mm3 Seg Neutrophils % (40.0-70.0) % Seg Neutrophils # (1.8-7.7) K/mm3 Potassium 3.5 L (3.6-5.0) mmol/L Creatinine 0.5 L (0.8-1.5) mg/dL Glucose 210 H (75-100) mg/dL POC Glucose 177 H (70-105) Calcium 7.8 L (8.4-10.2) mg/dL 12/01/16 12/01/16 12/01/16 Range/Units 01:02 06:21 09:18 RBC 3.35 L (3.65-5.03) M/mm3 Hgb 9.6 L (11.8-15.2) gm/dl Hct 30.2 L (35.5-45.6) % Lymph % (Auto) 7.4 L (13.4-35.0) % Lymph # 0.8 L (1.2-5.4) K/mm3 Seg Neutrophils % 87.6 H (40.0-70.0) % Seg Neutrophils # 9.1 H (1.8-7.7) K/mm3 Potassium (3.6-5.0) mmol/L Creatinine (0.8-1.5) mg/dL Glucose (75-100) mg/dL POC Glucose 117 H 131 H (70-105) Calcium (8.4-10.2) mg/dL 12/01/16 Range/Units 09:18 RBC (3.65-5.03) M/mm3 Hgb (11.8-15.2) gm/dl Hct (35.5-45.6) % Lymph % (Auto) (13.4-35.0) % Lymph # (1.2-5.4) K/mm3 Seg Neutrophils % (40.0-70.0) % Seg Neutrophils # (1.8-7.7) K/mm3 Potassium (3.6-5.0) mmol/L Creatinine 0.5 L (0.8-1.5) mg/dL Glucose 149 H (75-100) mg/dL POC Glucose (70-105) Calcium 7.8 L (8.4-10.2) mg/dL
[2016-12-01] MEDS: REGLAN IV SCH ×3 (17:33→22:18)
[2016-12-01] MEDS ORDERED: ELIQUIS PO SCH (22:00)
[2016-12-01] MEDS: PEPCID IV SCH (22:23)
[2016-12-02 05:44] VITALS: BP 101/69
[2016-12-02] MEDS ORDERED: ADRENALIN ONE (07:05)
--- NOTE | 2016-12-02 07:42 | Event Note ---
Date: 12/02/16 Patient pronounced at 07:07am on 12/02/16 Informed the daughter and the Attending .
[2016-12-02] MEDS: DUONEB *Not for PRN Use IH SCH (08:35)
[2016-12-05 23:36] LABS: LDH,Body Fluid 135
[2016-12-09] MEDS ORDERED: ELIQUIS PO SCH (22:00)
--- NOTE | 2016-12-12 13:39 | Death Summary ---
Summary - Providers Date of service: 12/02/16 Consults: 11/25/16 07:36 Consult to Dietitian/Nutrition [CONS] Routine Physician Instructions: Reason For Exam: Low Albumin Reason for Consult: Malnutrition 11/25/16 08:11 Consult to Physician [CONS] Routine Consulting Provider: KIRTI ROSARIO Reason For Exam: Acute resp. failure Place consult to:: Notified:: Phone number called:: yes 11/25/16 11:52 Speech Therapy Evaluation and Treat [CONS] Routine Reason For Exam: Aspiration 11/25/16 22:25 Consult to Wound/ET Nurse [CONS] Routine Reason For Exam: wound eval 11/26/16 13:09 Consult to Physician [CONS] Routine Consulting Provider: DEMETRICE NAVARRO Reason For Exam: Peg tube Place consult to:: Dr. Navarro Notified:: Nicolasa LI Phone number called:: Was contact made?: Yes If yes, spoke with:: Lui-Office Time called:: 13:33 11/27/16 13:49 Consult to Dietitian/Nutrition [CONS] Routine Physician Instructions: Reason For Exam: Reason for Consult: Write/Manage Tube Feeding Attending: GUANACO EDOUARD - summary Date of admission: 11/25/16 06:58 Date of : 12/02/16 Reason for admission: Respiratory distress Procedures/treatments rendered: The patient is an 86 year old male who is followed by Dr. New in the office with a history of hypertension, CVA, COPD, prostate CA, bilateral PE, dementia presented the emergency department via EMS from home with shortness of breath and some signs of respiratory distress. The patient was on home health care hospice and wa DNR code status. Upon EMS arrival, pt was found to have a pulse ox of about 80% on room air and had audible crackles. He improved when he was placed on CPAP in route. Following admission, D-dimer was found to be is elevated; chest CTA was negative for PE, showed COPD with fibrosis, bilateral lower lung atelectasis with mild effusions, significant upper abdominal ascites per radiology report. CT scan of the abdomen and pelvis obtained for abdominal distention which revealed large volume ascites and bilateral pleural effusion. He was placed on nebulizer breathing treatments and BiPAP/CPAP as needed. Patient had high suspicion for aspiration and was evaluated by speech therapy. Speech therapy recommended nothing by mouth and to place PEG tube for feeding. Patient's clinical status was updated to his daughter and she wished to change his CODE STATUS to full code. But by next day she changed her mind again and expressed that she would like to change his CODE STATUS to DO NOT RESUSCITATE again. She was asked multiple times to confirm and she expressed the same. GI was consulted for PEG tube placement and GI requested for pulmonary and cardiac clearance. Patient had PEG tube placement and paracentesis drawing 3.6 L of acetic fluid on 11/28 2016. He shouldn't tolerated the procedure well and was started on tube feeding through PEG tube. On admission Troponin was also found to be elevated and thus cardiology was consulted. Cardiology recommended to obtain 2-D echo and to trend troponin. His Troponins where flat and trending down, 2-D echo showed normal ejection fraction. Given pt's advanced age, dementia, DO NOT RESUSCITATE CODE STATUS, high risk for falls and multiple co- morbidities cardiology decided that he was not a candidate for invasive cardiac management and recommended to continue conservative management with ASA 81, Lopressor and lipitor. Even though the patient was placed on PEG tube for tube feeding he was requiring frequent suctioning to clear his airway. On 12/02 emergency medical service coordinator patient noted to be bradycardic and becoming lethargic with shallow respiration. Daughter was called by the on duty RN to update patient's status and on that point patient daughter again wished to change patient CODE STATUS to full code and requested to do resuscitation if he goes to cardiac arrest. Eventually patient became unresponsive and lost his pulse. ACLS was initiated, he was given epinephrine, but he remained in asystole and pulse was not regain. Patient was pronounced by Dr. little. Patient daughter was updated by Dr. little by phone. Cause of Cardiac arrest due to acute respiratory failure due to aspiration due to underlying dysphagia and severe dementia.
== END 2016-12-02 11:50 | disposition hospice, home (50) | DRG 177 ==
LOC: ED 01:07 → 4A 06:58 → CC1 08:27 → 4A 13:54
PROVIDERS: ADMIT Internal Medicine; ATTEND Internal Medicine
PROC: 4A033R1 Measurement of Arterial Saturation, Peripheral, Percutaneous Approach (ICD-10-PCS; principal; 2016-11-25)
PROC: 5A09357 Assistance with Respiratory Ventilation, Less than 24 Consecutive Hours, Continuous Positive Airway Pressure (ICD-10-PCS; 2016-11-25)
PROC: 0W9G3ZZ Drainage of Peritoneal Cavity, Percutaneous Approach (ICD-10-PCS; 2016-11-28)
PROC: 0DH63UZ Insertion of Feeding Device into Stomach, Percutaneous Approach (ICD-10-PCS; 2016-11-28)
DX: J69.0 Pneumonitis due to inhalation of food and vomit (principal); I21.4 Non-ST elevation (NSTEMI) myocardial infarction; J96.01 Acute respiratory failure with hypoxia; G93.41 Metabolic encephalopathy; E43 Unspecified severe protein-calorie malnutrition; J44.1 Chronic obstructive pulmonary disease with (acute) exacerbation; R18.8 Other ascites; I82.402 Acute embolism and thrombosis of unspecified deep veins of left lower extremity; J90 Pleural effusion, not elsewhere classified; E87.0 Hyperosmolality and hypernatremia; I50.30 Unspecified diastolic (congestive) heart failure; R65.10 Systemic inflammatory response syndrome (SIRS) of non-infectious origin without acute organ dysfunction; Z68.1 Body mass index [BMI] 19.9 or less, adult; I25.10 Atherosclerotic heart disease of native coronary artery without angina pectoris; F03.90 Unspecified dementia, unspecified severity, without behavioral disturbance, psychotic disturbance, mood disturbance, and anxiety; K21.9 Gastro-esophageal reflux disease without esophagitis; K44.9 Diaphragmatic hernia without obstruction or gangrene; K29.70 Gastritis, unspecified, without bleeding; R13.10 Dysphagia, unspecified; E87.70 Fluid overload, unspecified; Z66 Do not resuscitate; E78.5 Hyperlipidemia, unspecified; R41.82 Altered mental status, unspecified; I27.2 Other secondary pulmonary hypertension; I11.0 Hypertensive heart disease with heart failure; Z86.73 Personal history of transient ischemic attack (TIA), and cerebral infarction without residual deficits; Z85.46 Personal history of malignant neoplasm of prostate; Z82.49 Family history of ischemic heart disease and other diseases of the circulatory system; Z82.3 Family history of stroke; Z86.711 Personal history of pulmonary embolism
CPT/HCPCS: 36415; 36600; 49083; 71010; 71275; 74000; 74176; 80048; 80053; 80061; 80074; 81001; 82040; 82140; 82150; 82803; 82962; 83605; 83735; 83880; 84100; 84160; 84484; 85007; 85025; 85027; 85379; 85610; 87040; 87076; 87116; 87186; 88112; 88305; 89051; 93005; 93010; 93306; 93970; 94640; 94760; 99291; A9270-GY; G8996-GN; G8997-GN; G8998-GN; J0171; J0690; J1644; J1650; J1940; J2704; J2765; J2920; J7030; Q9967